=== PATIENT | female | born 1950 | race African-American/Black ===

== ENCOUNTER 2017-01-06 14:28 | Inpatient (IN) | payer MEDICARE, OTHER ==
[~2017-01-06] VITALS: Ht 162.6 cm; Wt 88.5 kg
--- NOTE | 2017-01-06 15:13 | EKG ---
[address] [address] Test Date: 2017-01-06 Test Time: 14:48:03 Pat Name: СВЕТЛАНА SIMON Department: Room: Gender: F Lineman: : 1950 Requested By: CHARO VAUGHN Order Number: [id number] Reading MD: Measurements Intervals [place] Rate: 80 P: 90 DC: 278 QRS: -82 QRSD: 156 T: 77 QT: 428 QTc: 498 Interpretive Statements SINUS RHYTHM PROLONGED DC INTERVAL ABNORMAL LEFT AXIS DEVIATION NON SPECIFIC INTRAVENTRICULAR BLOCK RVH WITH REPOLARIZATION ABNORMALITY QRS(T) CONTOUR ABNORMALITY CONSISTENT WITH ANTERIOR INFARCT POSSIBLY RECENT CONSISTENT WITH INFEROLATERAL INFARCT POSSIBLY RECENT RI6.01 Unconfirmed report No previous ECG available for comparison
[2017-01-06 15:19] LABS: BASO # 0.1 x10^3/uL (0.0-0.2); BASO % 1 % (0-3); EOS # 0.2 x10^3/uL (0.0-0.7); EOS % 2 % (0-3); HEMATOCRIT 44.3 % (36.0-47.0); HEMOGLOBIN 14.4 g/dL (12.0-15.5); LYMPH # 2.4 x10^3/uL (1.0-4.8); LYMPH % 29 % (24-48); MEAN CORPUSCULAR HEMOGLOBIN 31 pg (25-35); MEAN CORPUSCULAR HGB CONC 32 g/dL (31-37); MEAN CORPUSCULAR VOLUME 95 fL (79-100); MONO # 0.5 x10^3/uL (0.0-1.1); MONO % 6 % (0-9); NEUT # 5.1 x10^3uL (1.8-7.7); NEUT % 62 % (31-73); PLATELET COUNT 268 x10^3/uL (140-400); RED BLOOD COUNT 4.68 x10^6/uL (3.50-5.40); RED CELL DISTRIBUTION WIDTH 16.3 % (11.5-14.5); WHITE BLOOD COUNT 8.3 x10^3/uL (4.0-11.0)
[2017-01-06 15:30] LABS: ALBUMIN 3.4 g/dL (3.4-5.0); CALCIUM 8.9 mg/dL (8.5-10.1); CREATININE 1.6 mg/dL (0.6-1.0); GFR 38.9; MAGNESIUM 1.9 mg/dL (1.8-2.4); TOTAL BILIRUBIN 0.3 mg/dL (0.2-1.0); TOTAL PROTEIN 6.9 g/dL (6.4-8.2)
--- NOTE | 2017-01-06 15:55 | PHYS DOC ---
General Chief Complaint: MANIC BEHAVIOR Stated Complaint: PSYCH EVALUATION Time Seen by MD: 15:13 Source: patient, family Exam Limitations: clinical condition Problems: History of Present Illness Initial Comments Pt is 66/F to ED for medical clearance and [facility] admission. Pt is brought in by her daughter with whom she lives, stating that pt has 2 weeks worsening confusion, emotional lability, forgetfulness, and agitation. She follows with Dr Clay. Patient is alert and aware of her condition, she says she knows that she talks out loud and answers herself. She is aware that she's been irritable and she repeats herself. She becomes intermittently tearful while talking and initially had no complaints however shortly after arrival began requesting oxycodone for her foot pain attributed to history of gout. She was on hospice for COPD/CHF until today, it was discontinued so pt could receive inpatient SBH treatment and medication titration. Daughter reports that pt respiratory status slightly worsened today, requiring 3L O2 NC (uses 2L as baseline at all times). Pt denies chest pain or new breathing difficulty. Her ED vital signs are stable on 3 L of O2 per nasal cannula. Timing/Duration: getting worse (2 weeks) Severity: severe (L7, eyes: Unremarkable. Throughout some status is chest) Modifying Factors: improves with other Associated Symptoms: other Allergies: Coded Allergies: Penicillins (Verified Allergy, Unknown, 01/06/17) Past Medical History Medical History: other (breast cancer, COPD, CHF, atrial fibrillation, gout, diabetes, tremor, O2 dependent) Surgical History: pacemaker (bilateral mastectomy) Social History Smoker: cigarettes Alcohol: none Drugs: none Review of Systems Constitutional: denies chills, denies fever EENTM: denies eye pain, denies ear pain, denies nose pain, denies throat pain Respiratory: see HPI Cardiovascular: denies chest pain, denies palpitations, denies syncope Gastrointestinal: denies abdominal pain, denies diarrhea, denies nausea, denies vomiting Genitourinary: denies dysuria, denies frequency, denies hematuria Musculoskeletal: see HPI Psychiatric/Neurological: see HPI, denies headache, denies paresthesia, tremors Physical Exam General Appearance: no apparent distress (disheveled) Eyes: bilateral eye normal inspection, bilateral eye PERRL, bilateral eye EOMI Ear, Nose, Throat: hearing grossly normal, normal ENT inspection Neck: non-tender, supple Respiratory: other (faint wheezes diffusely with good air movement mildly decreased at the bases) Cardiovascular: normal peripheral pulses, regular rate, rhythm Gastrointestinal: non tender, soft Extremities: no calf tenderness, other (feet are tender bilaterally) Neurologic/Psychiatric: alert, other (emotional lability, periods of lucidity intermingled with confusion, calm and cooperative) Skin: normal color, warm/dry Orders, Labs, Meds EKG: Paced rhythm 80 bpm PATIENT: СВЕТЛАНА SIMON ACCOUNT: [id number] : 1950 LOCATION: ER AGE: 66 SEX: F EXAM STATUS: REG ER ORD. PHYSICIAN: CHARO VAUGHN DO REASON: dyspnea PROCEDURE: CHEST AP ONLY Portable chest, 01/06/2017: History: Dyspnea No previous chest radiographs are available at this time for comparison purposes. A left-sided transvenous pacemaker is in place with 2 leads extending into the right heart. The heart is mildly enlarged. The pulmonary vascularity is within normal limits. No pulmonary infiltrates are seen. There is no evidence of pleural fluid. Surgical clips are projected over the left axillary region. IMPRESSION: 1. Cardiomegaly. 2. No acute abnormality is detected. DICTATED AND SIGNED BY: TORITO EDWARDS MD DATE: 01/06/171635 CC: CHRISTEL GARDNER; CHARO VAUGHN DO ~ Pertinent labs: BUN 15, creatinine 1.6, BNP 453 Patient received a DuoNeb in the emergency department with improved breath sounds and decreased wheeze bilaterally. Percocet by mouth 7.5 mg with adequate foot pain control. Patient is medically stable for [facility] admission Dr Clay is accepting physician. Departure Time of Disposition: 17:00 Disposition: ADMITTED INPATIENT Diagnosis: mental status change, bipolar Condition: STABLE CHARO VAUGHN DO Jan 06, 2017 15:55
[2017-01-06 15:59] LABS: BILIRUBIN,URINE NEG (NEG); CLARITY,URINE HAZY; COLOR,URINE YELLOW; GLUCOSE,URINE NEG (NEG); NITRITE,URINE NEG (NEG); UROBILINOGEN,URINE 0.2 mg/dL (0.2 mg/dL)
[2017-01-06 16:00] LABS: BACTERIA,URINE FEW /HPF (0-FEW); SQUAMOUS EPITHELIAL CELL,UR MANY /LPF
[2017-01-06] MEDS ORDERED: IPRATRPIUM/ALBUTEROL 0.5/2.5MG 3 ML NEBU. ONE (16:07)
[2017-01-06] MEDS ORDERED: oxyCODONE/APAP 7.5/325 1 TAB TABLET PO ONE (16:10)
[2017-01-06] MEDS ORDERED: IPRATRPIUM/ALBUTEROL 0.5/2.5MG 3 ML NEBU. NEB ONE (16:10)
--- NOTE | 2017-01-06 16:41 | RAD ---
Portable chest, 01/06/2017: History: Dyspnea No previous chest radiographs are available at this time for comparison purposes. A left-sided transvenous pacemaker is in place with 2 leads extending into the right heart. The heart is mildly enlarged. The pulmonary vascularity is within normal limits. No pulmonary infiltrates are seen. There is no evidence of pleural fluid. Surgical clips are projected over the left axillary region. IMPRESSION: 1. Cardiomegaly. 2. No acute abnormality is detected.
[2017-01-06] MEDS ORDERED: MAG HYDROX/AL HYDROX/SIMETH 30 ML ORAL.SUSP PO PRN (18:30)
[2017-01-06] MEDS ORDERED: METHYL SALICYLATE/MENTHOL TOPICAL OINTMENT 29GM TUBE. TP PRN (18:30)
[2017-01-06 18:31] VITALS: BP 106/75
--- NOTE | 2017-01-06 20:21 | PDOC ---
Exam Albert Demential Exam: Albert Note: Please also refer to the separate dictated note~for this date of service dictated separately.~Patient seen individually. Discussed the patient with Nursing staff reviewed the chart.~Reviewed interim history and current functioning. Reviewed vital signs,~Labs/ Radiology~and current medications noted below. Continue current treatment with the changes noted in the dictated addendum note Assessment: Vital Signs: Vital Signs Date Time Temp Pulse Resp B/P (MAP) Pulse Ox O2 Delivery O2 Flow Rate FiO2 01/06/17 18:31 97.7 84 18 106/75 (85) 94 Nasal Cannula 2.0 Labs: Laboratory Tests Test 01/06/17 15:03 01/06/17 15:20 01/06/17 19:42 White Blood Count 8.3 x10^3/uL (4.0-11.0) Red Blood Count 4.68 x10^6/uL (3.50-5.40) Hemoglobin 14.4 g/dL (12.0-15.5) Hematocrit 44.3 % (36.0-47.0) Mean Corpuscular Volume 95 fL (79-100) Mean Corpuscular Hemoglobin 31 pg (25-35) Mean Corpuscular Hemoglobin Concent 32 g/dL (31-37) Red Cell Distribution Width 16.3 % (11.5-14.5) H Platelet Count 268 x10^3/uL (140-400) Neutrophils (%) (Auto) 62 % (31-73) Lymphocytes (%) (Auto) 29 % (24-48) Monocytes (%) (Auto) 6 % (0-9) Eosinophils (%) (Auto) 2 % (0-3) Basophils (%) (Auto) 1 % (0-3) Neutrophils # (Auto) 5.1 x10^3uL (1.8-7.7) Lymphocytes # (Auto) 2.4 x10^3/uL (1.0-4.8) Monocytes # (Auto) 0.5 x10^3/uL (0.0-1.1) Eosinophils # (Auto) 0.2 x10^3/uL (0.0-0.7) Basophils # (Auto) 0.1 x10^3/uL (0.0-0.2) Sodium Level 142 mmol/L (136-145) Potassium Level 4.0 mmol/L (3.5-5.1) Chloride Level 104 mmol/L (98-107) Carbon Dioxide Level 28 mmol/L (21-32) Anion Gap 10 (6-14) Blood Urea Nitrogen 15 mg/dL (7-20) Creatinine 1.6 mg/dL (0.6-1.0) H Estimated GFR (Cockcroft-Gault) 38.9 BUN/Creatinine Ratio 9 (6-20) Glucose Level 164 mg/dL (70-99) H Calcium Level 8.9 mg/dL (8.5-10.1) Magnesium Level 1.9 mg/dL (1.8-2.4) Total Bilirubin 0.3 mg/dL (0.2-1.0) Aspartate Amino Transferase (AST) 12 U/L (15-37) L Alanine Aminotransferase (ALT) 17 U/L (14-59) Alkaline Phosphatase 77 U/L (46-116) Troponin I Quantitative < 0.017 ng/mL (0-0.055) TU-Kmb-F-Type Natriuretic Peptide 453 pg/mL (0-124) H Total Protein 6.9 g/dL (6.4-8.2) Albumin 3.4 g/dL (3.4-5.0) Albumin/Globulin Ratio 1.0 (1.0-1.7) Urine Collection Type Unknown Urine Color Yellow Urine Clarity Hazy Urine pH 5.5 Urine Specific [place] 1.015 Urine Protein Trace (NEG-TRACE) Urine Glucose (UA) Neg mg/dL (NEG) Urine Ketones (Stick) Neg mg/dL (NEG) Urine Blood Neg (NEG) Urine Nitrite Neg (NEG) Urine Bilirubin Neg (NEG) Urine Urobilinogen Dipstick 0.2 mg/dL (0.2 mg/dL) Urine Leukocyte Esterase Neg (NEG) Urine RBC 1-2 /HPF (0-2) Urine WBC 1-4 /HPF (0-4) Urine Squamous Epithelial Cells Many /LPF Urine Transitional Epithelial Cells Few /LPF Urine Bacteria Few /HPF (0-FEW) Urine Mucus Slight /LPF Glucose (Fingerstick) 186 mg/dL (70-99) H Current Medications: Meds: Current Medications Albuterol/ Ipratropium (Duoneb) 3 ml 1X ONCE NEB Last administered on t 16:09; Start 01/06/17 at 16:10; Stop 01/06/17 at 16:11; Status DC Oxycodone/ Acetaminophen (Percocet 7.5/ 325) 1 tab 1X ONCE PO Last administered on 01/06/17 16:07; Start 01/06/17 at 16:10; Stop 01/06/17 at 16:11 ; Status DC Albuterol/ Ipratropium (Duoneb) 3 ml STK-MED ONCE .ROUTE ; Start 01/06/17 at 16: 07; Stop 01/06/17 at 16:08; Status DC Acetaminophen (Tylenol) 650 mg PRN Q6HRS PRN PO PAIN / TEMP; Start 01/06/17 at 16:30 Multi-Ingredient Ointment (Analgesic [place]) 1 luis miguel PRN QID PRN TP MUSCLE PAIN; Start 01/06/17 at 18:30 Al Hydroxide/Mg Hydroxide (Mylanta Plus Xs) 15 ml PRN AFTMEALHC PRN PO DYSPEPSIA; Start 01/06/17 at 18:30 Magnesium Hydroxide (Milk Of Magnesia) 2,400 mg PRN QHS PRN PO CONSTIPATION; Start 01/06/17 at 18:30 Nicotine (Nicoderm Cq 21mg) 1 patch DAILY TD ; Start 01/07/17 at 09:00 Diagnosis: Problems: (1) Mental status change (2) Bipolar 1 disorder, mixed TRUDI LACEY MD Jan 06, 2017 20:21
[2017-01-06] MEDS ORDERED: METO2.5T PO (22:16)
[2017-01-06] MEDS ORDERED: TRAZ300T2 (22:16)
[2017-01-06] MEDS ORDERED: TORS20TA2 PO (22:16)
[2017-01-06] MEDS ORDERED: NITR0.4T SL (22:16)
[2017-01-06] MEDS ORDERED: OMEP40CA5 PO (22:16)
[2017-01-06] MEDS ORDERED: VENL75CA6 PO (22:16)
[2017-01-06] MEDS ORDERED: ONDA8TAB12 PO (22:16)
[2017-01-06] MEDS ORDERED: SPIR25TA3 PO (22:16)
[2017-01-06] MEDS ORDERED: SPIR50TA2 PO (22:16)
[2017-01-06] MEDS ORDERED: ALLO300T PO (22:16)
[2017-01-06] MEDS ORDERED: ASPI-630 PO (22:16)
[2017-01-06] MEDS ORDERED: GLIM4TAB2 PO (22:16)
[2017-01-06] MEDS ORDERED: GABA600T2 PO (22:16)
[2017-01-06] MEDS ORDERED: POTA20TA4 PO (22:16)
[2017-01-06] MEDS ORDERED: INDO50CA PO (22:16)
[2017-01-06] MEDS ORDERED: SENN1TAB9 PO (22:16)
[2017-01-06] MEDS ORDERED: SITA100T PO (22:16)
[2017-01-06] MEDS ORDERED: TRAZ-90 PO (22:16)
--- NOTE | 2017-01-06 23:28 | HP ---
ADMIT DATE: 01/06/2017 PSYCHIATRIC ADMISSION HISTORY/EVALUATION IDENTIFYING DATA: The patient is a 66-year-old -Kitt[place] female referred as an emergency after that the patient's daughter called me through the answering service on account of the patient's worsening confusion, racing thoughts, , repeating herself, more emotional, forgetful, agitated. Her outpatient psychologist, Dr. Amanda Yu had asked the daughter to consider having the patient hospitalized from a psychiatric standpoint to stabilize her solomon. It was then that her daughter called me as I followed the patient as outpatient for some time though she is not being back at my office for about 6 months. Daughter was unable to manage the patient at home. Her confusion was worsening. She was increasingly manic, forgetful and referred for inpatient psychiatric stabilization. CHIEF COMPLAINT: "I am more forgetful. I am thinking too fast. I can't stop . I had been on hospice for heart failure. I cannot go on like this." HISTORY OF PRESENT ILLNESS: The patient has a long history of bipolar disorder. I have followed her in the office for about 20 years and she returns approximately every 6 months and she is followed outpatient by Dr. Amanda Yu, her psychologist every 1 or 2 weeks. For the most part, she has been stable on mood stabilizers and atypical antipsychotics together with antidepressants. Over the past 2 weeks; however, this is all changed. She is getting more confused, forgetful, with sleep and appetite changes have been evident. She has been more irritable, emotional, psychotic. Haldol was administered outpatient, seemed to exacerbate her symptoms. No active suicidal or homicidal ideation. PAST PSYCHIATRIC HISTORY: As above. PAST MEDICAL HISTORY: COPD, congestive heart failure, diabetes mellitus, gout, tremors. ALLERGIES: PENICILLIN. CURRENT PSYCHOTROPICS: Electronic medication administration records were reviewed. The patient is currently on no psychotropics as hospice had discontinued this regimen. CODE STATUS: DNR. FAMILY HISTORY: Noncontributory. SOCIAL HISTORY: The patient lives at home with her daughter and 3 grandchildren. No alcohol or drug abuse, physical, sexual or elder abuse history is noted. She is not known to be a perpetrator. MENTAL STATUS EXAMINATION: The patient was seen individually evening of 01/06/2017 shortly after she arrived in the unit. She is oriented to herself and situation and seemed to recognize me quite clearly, was able to give reasonable past history, but short-term memory was impaired. She is sad, depressed, tearful, anxious, labile in her mood. She is also paranoid. No active suicidal or homicidal ideation. Attention span short, language function intact. Intellect average. Insight good. Judgment intact to standard questioning. REVIEW OF SYSTEMS: Ambulation impaired. No CV, , pulmonary, eye, ENT system symptoms on review. This note covers the elements not covered in my initial note. LABORATORY DATA: Reviewed. IMPRESSION: Bipolar 1 disorder, mixed versus depressed with psychotic features; cognitive disorder, unspecified versus mild cognitive impairment; anxiety disorder, unspecified; impulse control disorder, unspecified. Rest as above. PLAN: Admit to the geropsychiatry unit at [facility]. I will see the patient daily individually from a psychiatric standpoint. Request medical followup with Dr. German/Dr. Malcolm. Do not start the patient on any psychotropics for now. Observe baseline. We will add Zyprexa p.r.n. Consider restarting her on Depakote as a mood stabilizer, Seroquel as an atypical antipsychotic after the baseline assessment. We will also have a CT head done to rule out any intracranial lesion accounting for the change in mental status. TRUDI LACEY MD DR: CRYS/marietta JOB#: [id number] / [id number]
[2017-01-07] MEDS ORDERED: NITROGLYCERIN SUBLINGUAL 0.4 MG BOTTLE OF 25. SL PRN (03:00)
[2017-01-07] MEDS ORDERED: ONDANSETRON ODT 4 MG TAB.RAPDIS PO PRN (03:00)
[2017-01-07] MEDS ORDERED: SENNOSIDES/DOCUSATE 8.6/50MG TABLET. PO PRN (03:00)
--- NOTE | 2017-01-07 04:09 | ACF ---
Admission Criteria Forms MENTAL STATUS CHANGE Clinical Indications for Inpatient Care (Place 'X' for any and all applicable criteria): Ongoing inpatient care may be needed for 1 or more of the following(1)(2)(3)(5)( 6): [ ]I. Suspected serious etiology (eg, medical disorder, GLOBAL SAL[employer] event) of altered mental status [ ]II. Danger to self or others not manageable at lower level of care [ ]III. Grave disability (eg, inability to perform self care necessary at lower level of care) [X]IV. Agitation or inappropriate behavior interfering with care for primary condition (eg, attempting to discontinue lines or drains prematurely, unable to cooperate with respiratory care) [ ]V. Delirium [A] [D][E] as described by 1 or more of the following(26): [ ]a) Delirium due to alcohol or sedative [F] withdrawal [ ]b) Delirium of uncertain etiology that has not responded to appropriate empiric treatment [ ]c) Delirium that prevents performance of a life-sustaining function (eg, feeding or hydrating oneself) [ ]. General contraindications and/or Inappropriate clinical situations for Observational Care in patients with Mental Status Change, when ANY ONE of the following is required: [ ]a) Prediction of prolongation of LOS based on ANY ONE of the following may be considered as a contraindication for observational care 2, 3, 4, 5, 6, 7, 8, 9, 10, 11 [ ]i) Age > 65 yrs. [ ]ii) Patient arriving by ambulance [ ]iii) Patient with high acuity [ ]iv) Patient requiring vital sign monitoring [ ]v) Patient on IV medication [ ]b) Systolic blood pressures greater than or equal to 180mmHg 3, 12 [ ]c) Patient with altered mental status including delirium and other alteration of consciousness, (3) [ ]d) Patient whose discharge disposition will be to a halfway home or rehabilitation home should not be managed in Emergency Department Observation Unit. CMS rule requires 3 days hospital stay before such placement.3,13 [ ]e) Patient with failure to thrive due to broad array of etiologies 3,16,17 [ ]f) Inability to ambulate 3,14 Extended stay beyond goal length of stay for the primary condition may be needed until ALL of the following are present(3)(5): [ ]a) Underlying medical etiology of mental status change is absent, or has been established and adequately treated [ ]b) Danger to self or others is absent or manageable at lower level of care. [ ]c) Behavior crisis management, including physical or chemical restraints, is not required or available at lower level of car [ ]d) Substance or alcohol withdrawal is absent or manageable at lower level of care. [ ]e) Behavioral symptoms (eg, agitation, somnolence, inappropriate behavior) are absent, or are manageable at lower level of care. The original [facility] [employer] content created by [employer] has been revised. The portions of the content which have been revised are identified through the use of italic text or in bold, and [facility] has neither reviewed nor approved the modified material. All other unmodified content is copyright [employer]. Please see references footnoted in the original [employer] edition 2016 Admission Criteria Met?: Yes GAYLA MOODY Jan 07, 2017 04:09
[2017-01-07 05:31] VITALS: BP 108/73
[2017-01-07] MEDS: POTASSIUM CHLORIDE 20 MEQ TABLET.ER. PO SCH (08:46)
[2017-01-07] MEDS: GLIMEPIRIDE 4 MG TABLET PO SCH (08:46)
[2017-01-07] MEDS: LINAGLIPTIN 5 MG TABLET PO SCH (08:48)
[2017-01-07] MEDS: ALLOPURINOL 300 MG TABLET. PO SCH (08:48)
[2017-01-07] MEDS: ASPIRIN 81 MG TAB.CHEW PO SCH (08:48)
[2017-01-07] MEDS: VENLAFAXINE 75 MG TABLET. PO SCH ×3 (08:48→19:47)
[2017-01-07] MEDS: GABAPENTIN 300 MG CAPSULE. PO SCH ×3 (08:48→19:47)
[2017-01-07] MEDS: ACETAMINOPHEN 325 MG TABLET PO PRN (08:48)
[2017-01-07] MEDS: metOLazone 2.5 MG TABLET PO SCH (08:49)
[2017-01-07] MEDS: TORSEMIDE 20 MG TABLET. PO SCH ×2 (08:49→11:30)
[2017-01-07] MEDS: NICOTINE 21MG PATCH. TD SCH (08:50)
[2017-01-07] MEDS ORDERED: SPIRONOLACTONE 25 MG TABLET PO SCH ×2 (09:00)
[2017-01-07] MEDS: INDOMETHACIN 25 MG CAPSULE PO PRN ×2 (09:11→17:39)
--- NOTE | 2017-01-07 09:14 | RAD ---
CT head without contrast 01/07/2017 at 0847 hours Indication: Change in mental status Comparison: None available Technique: Multiple axial noncontrast CT images of the head were obtained from the skull base through the vertex. Findings: The ventricles, sulci and basal cisterns are within normal limits. Cleary-white matter differentiation is normal. There is no acute intracranial hemorrhage. There is no mass, mass effect or midline shift. Posterior fossa is within normal limits. Sellar and suprasellar cistern appear normal. Orbits are normal in appearance. Paranasal sinuses are well aerated. Mastoid air cells are well aerated. Scalp and calvaria are normal. Impression: There is no acute intracranial hemorrhage. PQRS Compliance Statement: One or more of the following individualized dose reduction techniques were utilized for this examination: 1. Automated exposure control 2. Adjustment of the mA and/or kV according to patient size 3. Use of iterative reconstruction technique
[2017-01-07 16:29] VITALS: BP 103/71
[2017-01-07 19:08] LABS: T3 TOTAL 109 ng/dL (71-180); THYROXINE 6.8 ug/dL (4.5-12.0)
[2017-01-07] MEDS: traZODone 100 MG TABLET. PO SCH (19:49)
--- NOTE | 2017-01-07 19:55 | PDOC ---
Exam Albert Demential Exam: Albert Note: Please also refer to the separate dictated note~for this date of service dictated separately.~Patient seen individually. Discussed the patient with Nursing staff reviewed the chart.~Reviewed interim history and current functioning. Reviewed vital signs,~Labs/ Radiology~and current medications noted below. Continue current treatment with the changes noted in the dictated addendum note Assessment: Vital Signs: Vital Signs Date Time Temp Pulse Resp B/P (MAP) Pulse Ox O2 Delivery O2 Flow Rate FiO2 01/07/17 16:29 97.7 84 20 103/71 (82) 95 Room Air 01/07/17 05:31 2.0 I&O Intake and Output 01/07/17 07:00 Intake Total 240 ml Balance 240 ml Intake Oral 240 ml Labs: Laboratory Tests Test 01/07/17 08:03 01/07/17 11:36 01/07/17 17:02 01/07/17 19:06 Glucose (Fingerstick) 113 mg/dL (70-99) H 126 mg/dL (70-99) H 171 mg/dL (70-99) H 158 mg/dL (70-99) H Current Medications: Meds: Current Medications Albuterol/ Ipratropium (Duoneb) 3 ml 1X ONCE NEB Last administered on 16:09; Start 01/06/17 at 16:10; Stop 01/06/17 at 16:11; Status DC Oxycodone/ Acetaminophen (Percocet 7.5/ 325) 1 tab 1X ONCE PO Last administered on 01/06/17 16:07; Start 01/06/17 at 16:10; Stop 01/06/17 at 16:11 ; Status DC Albuterol/ Ipratropium (Duoneb) 3 ml STK-MED ONCE .ROUTE ; Start 01/06/17 at 16: 07; Stop 01/06/17 at 16:08; Status DC Acetaminophen (Tylenol) 650 mg PRN Q6HRS PRN PO PAIN / TEMP Last administered on 01/07/17 08:48; Start 01/06/17 at 16:30 Multi-Ingredient Ointment (Analgesic [place]) 1 luis miguel PRN QID PRN TP MUSCLE PAIN; Start 01/06/17 at 18:30 Al Hydroxide/Mg Hydroxide (Mylanta Plus Xs) 15 ml PRN AFTMEALHC PRN PO DYSPEPSIA; Start 01/06/17 at 18:30 Magnesium Hydroxide (Milk Of Magnesia) 2,400 mg PRN QHS PRN PO CONSTIPATION; Start 01/06/17 at 18:30 Nicotine (Nicoderm Cq 21mg) 1 patch DAILY TD Last administered on 01/07/17 08: 50; Start 01/07/17 at 09:00 Allopurinol (Zyloprim) 300 mg DAILY PO Last administered on 01/07/17 08:48; Start 01/07/17 at 09:00 Aspirin (Children'S Aspirin) 81 mg DAILY PO Last administered on 01/07/17 08: 48; Start 01/07/17 at 09:00 Glimepiride (Amaryl) 4 mg DAILYAC PO Last administered on 01/07/17 08:46; Start 01/07/17 at 07:30 Metolazone (Zaroxolyn) 2.5 mg DAILY PO Last administered on 01/07/17 08:49; Start 01/07/17 at 09:00 Nitroglycerin (Nitrostat) 0.4 mg PRN Q5MIN PRN SL CHEST PAIN; Start 01/07/17 at 03:00 Potassium Chloride (Klor-Con) 20 meq DAILY PO Last administered on 01/07/17 08 :46; Start 01/07/17 at 09:00 Senna/Docusate Sodium (Senna Plus) 1 tab PRN BID PRN PO constipation; Start at 03:00 Spironolactone (Aldactone) 12.5 mg DAILY PO ; Start 01/07/17 at 09:00; Stop at 17:33; Status DC Torsemide (Demadex) 20 mg BIDACBL PO Last administered on 01/07/17 11:30; Start 01/07/17 at 07:30 Gabapentin (Neurontin) 600 mg TID PO Last administered on 01/07/17 19:47; Start 01/07/17 at 09:00 Indomethacin (Indocin) 50 mg PRN TID PRN PO INFLAMATION Last administered on 17:39; Start 01/07/17 at 03:00 Ondansetron HCl (Zofran Odt) 8 mg PRN Q8HRS PRN PO NAUSEA; Start 01/07/17 at 03 :00 Linagliptin (Tradjenta) 5 mg DAILY PO Last administered on 01/07/17 08:48; Start 01/07/17 at 09:00 Spironolactone (Aldactone) 50 mg DAILY PO ; Start 01/07/17 at 09:00; Stop at 17:33; Status DC Trazodone HCl (Desyrel) 200 mg HS PO Last administered on 01/07/17 19:49; Start 01/07/17 at 21:00 Venlafaxine HCl (Effexor) 75 mg TID PO Last administered on 01/07/17 19:47; Start 01/07/17 at 09:00 Spironolactone (Aldactone) 25 mg DAILY PO ; Start 01/08/17 at 09:00 Quetiapine Fumarate (SEROquel) 25 mg QHS PO Last administered on 01/07/17 19: 49; Start 01/07/17 at 21:00 Active Scripts Active Reported Trazodone Hcl 100 Mg Tablet 200 Mg PO HS Nitrostat (Nitroglycerin) 0.4 Mg Tab.subl 0.4 Mg SL PRN Q5MIN PRN Spironolactone 50 Mg Tablet 50 Mg PO DAILY Indomethacin 50 Mg Capsule 50 Mg PO TID PRN Januvia (Sitagliptin Phosphate) 100 Mg Tablet 100 Mg PO DAILY Senexon-S Tablet (Sennosides/Docusate Sodium) 1 Each Tablet 1 Each PO PRN BID PRN Zofran Odt (Ondansetron) 8 Mg Tab.rapdis 8 Mg PO PRN Q8HR PRN Aspirin 81 Mg Tab.chew 81 Mg PO DAILY Torsemide 20 Mg Tablet 20 Mg PO BIDACBL Klor-Con M20 (Potassium Chloride) 20 Meq Tab.er.prt 20 Meq PO DAILY Glimepiride 4 Mg Tablet 4 Mg PO DAILYAC Metolazone 2.5 Mg Tablet 2.5 Mg PO DAILY Gabapentin 600 Mg Tablet 600 Mg PO TID Spironolactone 25 Mg Tablet 12.5 Mg PO DAILY Allopurinol 300 Mg Tablet 300 Mg PO DAILY Venlafaxine Hcl Er (Venlafaxine Hcl) 75 Mg Cap.er.24h 3 Cap PO DAILY Diagnosis: Problems: (1) Mental status change (2) Bipolar 1 disorder, mixed (3) Bipolar 1 disorder, mixed, moderate (4) Anxiety disorder (5) Impulse control disorder TRUDI LACEY MD Jan 07, 2017 19:55
[2017-01-07] MEDS: MAGNESIUM HYDROXIDE 2,400 MG/30 ML ORAL.SUSP. PO PRN (20:05)
[2017-01-07] MEDS ORDERED: QUEtiapine 25 MG TABLET. PO SCH (21:00)
[2017-01-08] MEDS: ACETAMINOPHEN 325 MG TABLET PO PRN ×2 (03:13→12:03)
[2017-01-08 05:09] LABS: HEMOGLOBIN A1C 7.8 % (4.8-5.6)
[2017-01-08 06:28] VITALS: BP 145/73
[2017-01-08] MEDS: NICOTINE 21MG PATCH. TD SCH (07:47)
[2017-01-08] MEDS: GLIMEPIRIDE 4 MG TABLET PO SCH (07:48)
[2017-01-08] MEDS: ASPIRIN 81 MG TAB.CHEW PO SCH (07:49)
[2017-01-08] MEDS: metOLazone 2.5 MG TABLET PO SCH (07:49)
[2017-01-08] MEDS: VENLAFAXINE 75 MG TABLET. PO SCH ×3 (07:49→20:55)
[2017-01-08] MEDS: POTASSIUM CHLORIDE 20 MEQ TABLET.ER. PO SCH (07:49)
[2017-01-08] MEDS: GABAPENTIN 300 MG CAPSULE. PO SCH ×3 (07:49→20:53)
[2017-01-08] MEDS: LINAGLIPTIN 5 MG TABLET PO SCH (07:49)
[2017-01-08] MEDS: TORSEMIDE 20 MG TABLET. PO SCH ×2 (07:49→12:03)
[2017-01-08] MEDS: ALLOPURINOL 300 MG TABLET. PO SCH (07:49)
[2017-01-08] MEDS: SPIRONOLACTONE 25 MG TABLET PO SCH (07:50)
[2017-01-08] MEDS: INDOMETHACIN 25 MG CAPSULE PO PRN ×2 (07:52→13:17)
[2017-01-08 08:10] LABS: C REACTIVE PROTEIN 8.1 mg/L (0-3.3); CALCIUM 9.1 mg/dL (8.5-10.1); CREATININE 1.9 mg/dL (0.6-1.0); GFR 31.9; POTASSIUM 4.1 mmol/L (3.5-5.1); URIC ACID 3.1 mg/dL (2.6-6.0)
--- NOTE | 2017-01-08 15:40 | CONS ---
DATE OF CONSULTATION: 01/07/2017 REASON FOR CONSULTATION: Consult for medical management for the patient. HISTORY OF PRESENT ILLNESS: The patient is a 66-year-old -Tog[place] female patient who was referred as an emergency after her daughters called Dr. Clay through the answering service on account that the patient with worsening confusion, racing thoughts, repeating herself, more emotional, forgetful, and agitated. Her outpatient psychologist, Dr. Amanda Yu had asked her daughter to consider having the patient hospitalized from a psychiatric standpoint to stabilize her solomon and therefore, she was admitted to this unit for inpatient psychiatric stabilization. PAST PSYCHIATRIC HISTORY: Significant for bipolar disorder, has been followed by Dr. Clay for more than 20 years and followed every 6 months. She has been stable on mood stabilizers and atypical antipsychotics together with antidepressant; however, over the past 2 weeks, all this has changed. She is getting more confused, forgetful, sleep and appetite changes have been evident. She is more irritable, emotional, psychotic, but however, no active suicidal or homicidal ideation. PAST MEDICAL HISTORY: Significant for COPD, congestive heart failure, diabetes mellitus, gout and tremor. PAST SURGICAL HISTORY: Significant for tonsillectomy, cholecystectomy, appendectomy as well as mastectomy. ALLERGIES: She is allergic to PENICILLIN. MEDICATIONS: She is currently on following medications: Allopurinol 300 mg once a day, aspirin 81 mg once a day, gabapentin 600 mg 3 times a day, glimepiride 4 mg daily. She is also on indomethacin 50 mg 3 times a day, metolazone 2.5 mg once a day, nitroglycerin 0.4 mg sublingually every 5 minutes as needed, ondansetron 8 mg every 8 hours as needed, potassium chloride 20 mEq daily, Senna-S 1 tablet twice a day, sitagliptin or Januvia 100 mg once a day, spironolactone 12.5 mg once a day and spironolactone 50 mg p.o. daily, torsemide 20 mg b.i.d., trazodone 100 mg once a day, venlafaxine 75 mg, she takes 3 capsules p.o. daily. FAMILY HISTORY: Noncontributory. SOCIAL HISTORY: The patient lives at home with her daughter and three grandchildren. She does not drink alcohol, does not smoke or abuse drugs. REVIEW OF SYSTEMS: As per history of present illness. When I saw the patient, she did complain of pain in her right big toe, stated that she has a flare up of her gout, although she is already on indomethacin as well as allopurinol. PHYSICAL EXAMINATION: GENERAL: When I examined her, she was slightly pale, but no jaundice, cyanosis, or thyromegaly. No jugular venous distention. No limb edema. VITAL SIGNS: Her heart rate was 84, blood pressure 103/71, temperature was 97.7, respiratory rate 20, and oxygen saturation was 95%. HEAD, EYES, EARS, NOSE, and THROAT: She is normocephalic, atraumatic. NECK: Supple. HEART: Showed normal first and second heart sounds with no gallop, rub or murmur. CHEST: Clear to auscultation. No crepitation or rhonchi. ABDOMEN: Distended, soft, nontender. No guarding or rigidity. No organomegaly. Hernial orifices intact. Bowel sounds normal. NEUROLOGIC: She was awake, alert, responding appropriately. Cranial nerves intact. EXTREMITIES: She moves extremities without difficulty. She ambulates without assistance or assistive devices. LABORATORY DATA: Her lab work showed a serum sodium 142, potassium 4, chloride 104, bicarbonate 28, anion gap of 10, BUN 15, creatinine 1.6, estimated GFR was 39 mL per minute. Her glucose 164, calcium was 8.9, magnesium 1.9. Her serum iron was 35, TIBC was 317 and iron saturation was 11%. Her total bilirubin, AST, ALT, alkaline phosphatase were normal. Her troponin was less than 0.017. Total protein was 6.9, albumin 3.4. Her vitamin B12 was 495. A 25-hydroxy vitamin D was 36.5. Her beta natriuretic peptide was 453. Serum triglycerides were 201, total cholesterol 110, LDL was 42, VLDL was 14, and HDL cholesterol was 28 and the ratio was 3. Her white cell count was 8300, hemoglobin 14.4, hematocrit 44, MCV 95 and platelet count 268,000 with normal manual differential. Urinalysis was essentially unremarkable. The urine was negative for nitrite, leukocyte esterase. There were only 1-2 rbc's, 1-4 wbc's, and very few bacteria. Chest x-ray showed that she has mild cardiomegaly, no acute abnormalities detected. She has left-sided venous pacemaker in place with two leads, extending to the right heart. The heart is mildly enlarged. Pulmonary vascularity is within normal limits. No pulmonary infiltrates are seen. There is no evidence of pleural fluid. Surgical clips are projected over the left axillary region. CT scan of the head showed that the ventricles, sulci and basal cisterns are within normal limits. Cleary-white matter differentiation is normal. There is no acute intracranial hemorrhage. There is no mass, mass effect or midline shift. Posterior fossa is within normal limits. Sellar and suprasellar cistern appears normal. The orbits are normal in appearance. Paranasal sinuses are well aerated. Mastoid air cells are well aerated. calvarial are normal. IMPRESSION: In summary, this is a 66-year-old -T[place] male patient who was admitted for inpatient psychiatric stabilization on the account of increasing confusion that is worsening, increasingly manic, forgetful. From a medical point of view, she seemed to be stable. Her vital signs are all within normal range. She did complain of gout in her right big toe; however, there is no swelling, redness or even tenderness. She is already on allopurinol as well as indomethacin 50 mg 3 times a day. Her urinalysis is unremarkable. Her complete blood count was within normal range and her chemistry showed that she has mildly elevated creatinine at 1.6. I am not sure that indomethacin is the right choice for her. I will arrange for her to check her uric acid and also sedimentation rate and C-reactive protein and she is diabetic, she is not a good candidate for steroid treatment. Thank you, Dr. Clay for allowing me to participate in the care of this patient. SHWETA LEPE MD DR: GRIFFIN/marietta JOB#: [id number] / [id number]
[2017-01-08 16:32] VITALS: BP 103/72
[2017-01-08] MEDS: LORazepam 0.5 MG TABLET PO PRN (18:37)
--- NOTE | 2017-01-08 19:55 | PDOC ---
Exam Albert Demential Exam: Albert Note: Please also refer to the separate dictated note~for this date of service dictated separately.~Patient seen individually. Discussed the patient with Nursing staff reviewed the chart.~Reviewed interim history and current functioning. Reviewed vital signs,~Labs/ Radiology~and current medications noted below. Continue current treatment with the changes noted in the dictated addendum note Assessment: Vital Signs: Vital Signs Date Time Temp Pulse Resp B/P (MAP) Pulse Ox O2 Delivery O2 Flow Rate FiO2 01/08/17 16:32 97.4 85 18 103/72 (82) 100 2.0 01/07/17 16:29 Room Air I&O Intake and Output 01/08/17 07:00 Intake Total 1080 ml Balance 1080 ml Intake Oral 1080 ml Labs: Laboratory Tests Test 01/08/17 07:07 01/08/17 07:35 01/08/17 08:11 01/08/17 11:45 Erythrocyte Sedimentation Rate 14 (0-25) Sodium Level 143 mmol/L (136-145) Potassium Level 4.1 mmol/L (3.5-5.1) Chloride Level 105 mmol/L (98-107) Carbon Dioxide Level 31 mmol/L (21-32) Anion Gap 7 (6-14) Blood Urea Nitrogen 22 mg/dL (7-20) H Creatinine 1.9 mg/dL (0.6-1.0) H Estimated GFR (Cockcroft-Gault) 31.9 Glucose Level 75 mg/dL (70-99) Uric Acid 3.1 mg/dL (2.6-6.0) Calcium Level 9.1 mg/dL (8.5-10.1) C-Reactive Protein 8.1 mg/L (0-3.3) H Glucose (Fingerstick) 61 mg/dL (70-99) L 105 mg/dL (70-99) H 239 mg/dL (70-99) H Test 01/08/17 16:57 01/08/17 19:21 Glucose (Fingerstick) 110 mg/dL (70-99) H 192 mg/dL (70-99) H Current Medications: Meds: Current Medications Albuterol/ Ipratropium (Duoneb) 3 ml 1X ONCE NEB Last administered on t 16:09; Start 01/06/17 at 16:10; Stop 01/06/17 at 16:11; Status DC Oxycodone/ Acetaminophen (Percocet 7.5/ 325) 1 tab 1X ONCE PO Last administered on 01/06/17 16:07; Start 01/06/17 at 16:10; Stop 01/06/17 at 16:11 ; Status DC Albuterol/ Ipratropium (Duoneb) 3 ml STK-MED ONCE .ROUTE ; Start 01/06/17 at 16: 07; Stop 01/06/17 at 16:08; Status DC Acetaminophen (Tylenol) 650 mg PRN Q6HRS PRN PO PAIN / TEMP Last administered on 01/08/17 12:03; Start 01/06/17 at 16:30 Multi-Ingredient Ointment (Analgesic [place]) 1 luis miguel PRN QID PRN TP MUSCLE PAIN; Start 01/06/17 at 18:30 Al Hydroxide/Mg Hydroxide (Mylanta Plus Xs) 15 ml PRN AFTMEALHC PRN PO DYSPEPSIA; Start 01/06/17 at 18:30 Magnesium Hydroxide (Milk Of Magnesia) 2,400 mg PRN QHS PRN PO CONSTIPATION Last administered on 01/07/17 20:05; Start 01/06/17 at 18:30 Nicotine (Nicoderm Cq 21mg) 1 patch DAILY TD Last administered on 01/08/17 07: 47; Start 01/07/17 at 09:00 Allopurinol (Zyloprim) 300 mg DAILY PO Last administered on 01/08/17 07:49; Start 01/07/17 at 09:00 Aspirin (Children'S Aspirin) 81 mg DAILY PO Last administered on 01/08/17 07: 49; Start 01/07/17 at 09:00 Glimepiride (Amaryl) 4 mg DAILYAC PO Last administered on 01/08/17 07:48; Start 01/07/17 at 07:30 Metolazone (Zaroxolyn) 2.5 mg DAILY PO Last administered on 01/08/17 07:49; Start 01/07/17 at 09:00 Nitroglycerin (Nitrostat) 0.4 mg PRN Q5MIN PRN SL CHEST PAIN; Start 01/07/17 at 03:00 Potassium Chloride (Klor-Con) 20 meq DAILY PO Last administered on 01/08/17 07 :49; Start 01/07/17 at 09:00 Senna/Docusate Sodium (Senna Plus) 1 tab PRN BID PRN PO constipation; Start at 03:00 Spironolactone (Aldactone) 12.5 mg DAILY PO ; Start 01/07/17 at 09:00; Stop at 17:33; Status DC Torsemide (Demadex) 20 mg BIDACBL PO Last administered on 01/08/17 12:03; Start 01/07/17 at 07:30 Gabapentin (Neurontin) 600 mg TID PO Last administered on 01/08/17 13:17; Start 01/07/17 at 09:00 Indomethacin (Indocin) 50 mg PRN TID PRN PO INFLAMATION Last administered on 13:17; Start 01/07/17 at 03:00 Ondansetron HCl (Zofran Odt) 8 mg PRN Q8HRS PRN PO NAUSEA; Start 01/07/17 at 03 :00 Linagliptin (Tradjenta) 5 mg DAILY PO Last administered on 01/08/17 07:49; Start 01/07/17 at 09:00 Spironolactone (Aldactone) 50 mg DAILY PO ; Start 01/07/17 at 09:00; Stop at 17:33; Status DC Trazodone HCl (Desyrel) 200 mg HS PO Last administered on 01/07/17 19:49; Start 01/07/17 at 21:00 Venlafaxine HCl (Effexor) 75 mg TID PO Last administered on 01/08/17 13:17; Start 01/07/17 at 09:00 Spironolactone (Aldactone) 25 mg DAILY PO Last administered on 01/08/17 07:50 ; Start 01/08/17 at 09:00 Quetiapine Fumarate (SEROquel) 25 mg QHS PO Last administered on 01/07/17 19: 49; Start 01/07/17 at 21:00; Stop 01/08/17 at 18:23; Status DC Lorazepam (Ativan) 0.25 mg PRN Q2HR PRN PO ANXIETY / AGITATION Last administered on 8/16/17at 18:37; Start 01/08/17 at 18:30 Quetiapine Fumarate (SEROquel) 50 mg QHS PO ; Start 01/08/17 at 21:00 Active Scripts Active Reported Trazodone Hcl 100 Mg Tablet 200 Mg PO HS Nitrostat (Nitroglycerin) 0.4 Mg Tab.subl 0.4 Mg SL PRN Q5MIN PRN Spironolactone 50 Mg Tablet 50 Mg PO DAILY Indomethacin 50 Mg Capsule 50 Mg PO TID PRN Januvia (Sitagliptin Phosphate) 100 Mg Tablet 100 Mg PO DAILY Senexon-S Tablet (Sennosides/Docusate Sodium) 1 Each Tablet 1 Each PO PRN BID PRN Zofran Odt (Ondansetron) 8 Mg Tab.rapdis 8 Mg PO PRN Q8HR PRN Aspirin 81 Mg Tab.chew 81 Mg PO DAILY Torsemide 20 Mg Tablet 20 Mg PO BIDACBL Klor-Con M20 (Potassium Chloride) 20 Meq Tab.er.prt 20 Meq PO DAILY Glimepiride 4 Mg Tablet 4 Mg PO DAILYAC Metolazone 2.5 Mg Tablet 2.5 Mg PO DAILY Gabapentin 600 Mg Tablet 600 Mg PO TID Spironolactone 25 Mg Tablet 12.5 Mg PO DAILY Allopurinol 300 Mg Tablet 300 Mg PO DAILY Venlafaxine Hcl Er (Venlafaxine Hcl) 75 Mg Cap.er.24h 3 Cap PO DAILY Diagnosis: Problems: (1) Mental status change (2) Bipolar 1 disorder, mixed (3) Bipolar 1 disorder, mixed, moderate (4) Anxiety disorder (5) Mild cognitive disorder (6) Impulse control disorder TRUDI LACEY MD Jan 08, 2017 19:55
[2017-01-08] MEDS: traZODone 100 MG TABLET. PO SCH (20:53)
[2017-01-08] MEDS: QUEtiapine 25 MG TABLET. PO SCH (20:55)
[2017-01-08] MEDS: MAGNESIUM HYDROXIDE 2,400 MG/30 ML ORAL.SUSP. PO PRN (21:09)
[2017-01-09] MEDS: INDOMETHACIN 25 MG CAPSULE PO PRN (04:08)
[2017-01-09 05:53] VITALS: BP 98/67
[2017-01-09] MEDS: TORSEMIDE 20 MG TABLET. PO SCH ×2 (08:12→11:38)
[2017-01-09] MEDS: GLIMEPIRIDE 4 MG TABLET PO SCH (08:12)
[2017-01-09] MEDS: SPIRONOLACTONE 25 MG TABLET PO SCH (08:12)
[2017-01-09] MEDS: ALLOPURINOL 300 MG TABLET. PO SCH (08:17)
[2017-01-09] MEDS: LINAGLIPTIN 5 MG TABLET PO SCH (08:17)
[2017-01-09] MEDS: NICOTINE 21MG PATCH. TD SCH (08:17)
[2017-01-09] MEDS: ASPIRIN 81 MG TAB.CHEW PO SCH (08:17)
[2017-01-09] MEDS: POTASSIUM CHLORIDE 20 MEQ TABLET.ER. PO SCH (08:18)
[2017-01-09] MEDS: VENLAFAXINE 75 MG TABLET. PO SCH ×3 (08:18→19:46)
[2017-01-09] MEDS: GABAPENTIN 300 MG CAPSULE. PO SCH ×3 (08:18→19:46)
[2017-01-09] MEDS: metOLazone 2.5 MG TABLET PO SCH (08:18)
--- NOTE | 2017-01-09 14:30 | PN ---
DATE: 01/07/2017 PSYCHIATRIC PROGRESS NOTE This is a late entry for 01/07/2017, covers elements not covered in my initial of 01/07/2017. SUBJECTIVE: The patient was seen individually evening of 01/07/2017. She slept 6-3/4 hours previous night. Appetite 90%. CT head is clinically non-significant. O2 sats 95% on room air. She was previously on oxygen supplements while on hospice care at home. Nursing staff will monitor this. Reportedly, she has been extremely stressed since her twin sister 9 months ago, also secondary to congestive heart failure for which the patient is on hospice care herself. She is also being distressed with the gout pain, all of which have made her psychiatric symptoms worsen, addition to the fact that her psychotropics were discontinued as part of the hospice care. REVIEW OF SYSTEMS: Complains of being tired. Some shortness of breath. No CV, , pulmonary, eye, ENT system symptoms on review. MENTAL STATUS EXAM: Oriented to herself and situation. Speech is coherent. She is anxious, somewhat labile in her mood. Abstraction fair, computation impaired, language function intact, attention span short. Mood and affect remain somewhat anxious, labile, somewhat paranoid. No active suicidal or homicidal ideation. IMPRESSION: Bipolar 1 disorder, mixed with psychotic features; anxiety disorder, unspecified. PLAN: Continue Effexor 75 mg daily; trazodone 200 mg at bedtime; Seroquel will be started at 25 mg at bedtime, adjust further as clinically indicated. Seroquel is being used as a mood stabilizer and to augment the Effexor. MAN Enriqueta LACEY MD DR: CRYS/marietta JOB#: [id number] / [id number]
[2017-01-09 16:14] VITALS: BP 93/63
[2017-01-09] MEDS: traZODone 100 MG TABLET. PO SCH (19:46)
[2017-01-09] MEDS: QUEtiapine 25 MG TABLET. PO SCH (19:46)
--- NOTE | 2017-01-09 19:53 | PDOC ---
Exam Albert Demential Exam: Albert Note: Please also refer to the separate dictated note~for this date of service dictated separately.~Patient seen individually. Discussed the patient with Nursing staff reviewed the chart.~Reviewed interim history and current functioning. Reviewed vital signs,~Labs/ Radiology~and current medications noted below. Continue current treatment with the changes noted in the dictated addendum note Assessment: Vital Signs: Vital Signs Date Time Temp Pulse Resp B/P (MAP) Pulse Ox O2 Delivery O2 Flow Rate FiO2 01/09/17 16:14 96.9 81 20 93/63 (73) 94 01/09/17 05:53 2.0 01/07/17 16:29 Room Air I&O Intake and Output 01/09/17 07:00 Intake Total 1080 ml Balance 1080 ml Intake Oral 1080 ml # Voids 2 Labs: Laboratory Tests Test 01/09/17 04:04 01/09/17 07:17 01/09/17 12:03 01/09/17 16:33 Glucose (Fingerstick) 132 mg/dL (70-99) H 194 mg/dL (70-99) H 133 mg/dL (70-99) H 157 mg/dL (70-99) H Test 01/09/17 19:07 Glucose (Fingerstick) 173 mg/dL (70-99) H Current Medications: Meds: Current Medications Albuterol/ Ipratropium (Duoneb) 3 ml 1X ONCE NEB Last administered on 16:09; Start 01/06/17 at 16:10; Stop 01/06/17 at 16:11; Status DC Oxycodone/ Acetaminophen (Percocet 7.5/ 325) 1 tab 1X ONCE PO Last administered on 01/06/17 16:07; Start 01/06/17 at 16:10; Stop 01/06/17 at 16:11 ; Status DC Albuterol/ Ipratropium (Duoneb) 3 ml STK-MED ONCE .ROUTE ; Start 01/06/17 at 16: 07; Stop 01/06/17 at 16:08; Status DC Acetaminophen (Tylenol) 650 mg PRN Q6HRS PRN PO PAIN / TEMP Last administered on 01/08/17 12:03; Start 01/06/17 at 16:30 Multi-Ingredient Ointment (Analgesic [place]) 1 luis miguel PRN QID PRN TP MUSCLE PAIN; Start 01/06/17 at 18:30 Al Hydroxide/Mg Hydroxide (Mylanta Plus Xs) 15 ml PRN AFTMEALHC PRN PO DYSPEPSIA; Start 01/06/17 at 18:30 Magnesium Hydroxide (Milk Of Magnesia) 2,400 mg PRN QHS PRN PO CONSTIPATION Last administered on 01/08/17 21:09; Start 01/06/17 at 18:30 Nicotine (Nicoderm Cq 21mg) 1 patch DAILY TD Last administered on 01/09/17 08: 17; Start 01/07/17 at 09:00 Allopurinol (Zyloprim) 300 mg DAILY PO Last administered on 01/09/17 08:17; Start 01/07/17 at 09:00 Aspirin (Children'S Aspirin) 81 mg DAILY PO Last administered on 01/09/17 08: 17; Start 01/07/17 at 09:00 Glimepiride (Amaryl) 4 mg DAILYAC PO Last administered on 01/09/17 08:12; Start 01/07/17 at 07:30 Metolazone (Zaroxolyn) 2.5 mg DAILY PO Last administered on 01/09/17 08:18; Start 01/07/17 at 09:00 Nitroglycerin (Nitrostat) 0.4 mg PRN Q5MIN PRN SL CHEST PAIN; Start 01/07/17 at 03:00 Potassium Chloride (Klor-Con) 20 meq DAILY PO Last administered on 01/09/17 08 :18; Start 01/07/17 at 09:00 Senna/Docusate Sodium (Senna Plus) 1 tab PRN BID PRN PO constipation; Start at 03:00 Spironolactone (Aldactone) 12.5 mg DAILY PO ; Start 01/07/17 at 09:00; Stop at 17:33; Status DC Torsemide (Demadex) 20 mg BIDACBL PO Last administered on 01/09/17 11:38; Start 01/07/17 at 07:30 Gabapentin (Neurontin) 600 mg TID PO Last administered on 01/09/17 19:46; Start 01/07/17 at 09:00 Indomethacin (Indocin) 50 mg PRN TID PRN PO INFLAMATION Last administered on 04:08; Start 01/07/17 at 03:00 Ondansetron HCl (Zofran Odt) 8 mg PRN Q8HRS PRN PO NAUSEA; Start 01/07/17 at 03 :00 Linagliptin (Tradjenta) 5 mg DAILY PO Last administered on 01/09/17 08:17; Start 01/07/17 at 09:00 Spironolactone (Aldactone) 50 mg DAILY PO ; Start 01/07/17 at 09:00; Stop at 17:33; Status DC Trazodone HCl (Desyrel) 200 mg HS PO Last administered on 01/09/17 19:46; Start 01/07/17 at 21:00 Venlafaxine HCl (Effexor) 75 mg TID PO Last administered on 01/09/17 19:46; Start 01/07/17 at 09:00 Spironolactone (Aldactone) 25 mg DAILY PO Last administered on 01/09/17 08:12 ; Start 01/08/17 at 09:00 Quetiapine Fumarate (SEROquel) 25 mg QHS PO Last administered on 01/07/17 19: 49; Start 01/07/17 at 21:00; Stop 01/08/17 at 18:23; Status DC Lorazepam (Ativan) 0.25 mg PRN Q2HR PRN PO ANXIETY / AGITATION Last administered on 01/08/17 18:37; Start 01/08/17 at 18:30 Quetiapine Fumarate (SEROquel) 50 mg QHS PO Last administered on 01/09/17 19: 46; Start 01/08/17 at 21:00 Active Scripts Active Reported Trazodone Hcl 100 Mg Tablet 200 Mg PO HS Nitrostat (Nitroglycerin) 0.4 Mg Tab.subl 0.4 Mg SL PRN Q5MIN PRN Spironolactone 50 Mg Tablet 50 Mg PO DAILY Indomethacin 50 Mg Capsule 50 Mg PO TID PRN Januvia (Sitagliptin Phosphate) 100 Mg Tablet 100 Mg PO DAILY Senexon-S Tablet (Sennosides/Docusate Sodium) 1 Each Tablet 1 Each PO PRN BID PRN Zofran Odt (Ondansetron) 8 Mg Tab.rapdis 8 Mg PO PRN Q8HR PRN Aspirin 81 Mg Tab.chew 81 Mg PO DAILY Torsemide 20 Mg Tablet 20 Mg PO BIDACBL Klor-Con M20 (Potassium Chloride) 20 Meq Tab.er.prt 20 Meq PO DAILY Glimepiride 4 Mg Tablet 4 Mg PO DAILYAC Metolazone 2.5 Mg Tablet 2.5 Mg PO DAILY Gabapentin 600 Mg Tablet 600 Mg PO TID Spironolactone 25 Mg Tablet 12.5 Mg PO DAILY Allopurinol 300 Mg Tablet 300 Mg PO DAILY Venlafaxine Hcl Er (Venlafaxine Hcl) 75 Mg Cap.er.24h 3 Cap PO DAILY Diagnosis: Problems: (1) Mental status change (2) Bipolar 1 disorder, mixed (3) Bipolar 1 disorder, mixed, moderate (4) Anxiety disorder (5) Impulse control disorder TRUDI LACEY MD Jan 09, 2017 19:53
[2017-01-09] MEDS: MAGNESIUM HYDROXIDE 2,400 MG/30 ML ORAL.SUSP. PO PRN (20:58)
--- NOTE | 2017-01-09 23:48 | PN ---
DATE: 01/08/2017 PSYCHIATRIC PROGRESS NOTE This is a late entry of 01/08/2017 covers elements not covered in my initial note. SUBJECTIVE: I met with the patient evening of 01/08/2017. The patient has slept reasonably well previous evening had a better day per nursing report, complains of gout symptoms, attended group therapy. REVIEW OF SYSTEMS: Ambulation impaired. No CV, , pulmonary, eye system symptoms on review. Complains of shortness of breath, otherwise O2 sats are unremarkable. Anxiety seems to make her feel short of breath per nursing report. MENTAL STATUS EXAM: Reasonably oriented. Speech coherent, abstraction fair, computation somewhat impaired. Memory is impaired. No active suicidal or homicidal ideation. She is quite anxious. LABORATORY DATA: Reviewed. IMPRESSION: Bipolar 1 disorder, mixed with psychotic features, in partial remission; cognitive disorder, unspecified versus mild cognitive impairment. Rest unchanged. PLAN: Reviewed drug interactions risk, benefit ratio favors adding Ativan 0.25 mg q.2 hours p.r.n. anxiety maximum 1 mg in 24 hours, increasing bedtime Seroquel to 50 mg p.o. at bedtime for her bipolar disorder. No further change indicated at this time. TRUDI LACEY MD DR: CRYS/marietta JOB#: [id number] / [id number]
[2017-01-10] MEDS: INDOMETHACIN 25 MG CAPSULE PO PRN (01:28)
[2017-01-10 06:11] VITALS: BP 98/70
[2017-01-10] MEDS: SPIRONOLACTONE 25 MG TABLET PO SCH (07:53)
[2017-01-10] MEDS: GLIMEPIRIDE 4 MG TABLET PO SCH (07:53)
[2017-01-10] MEDS: LINAGLIPTIN 5 MG TABLET PO SCH (07:53)
[2017-01-10] MEDS: ASPIRIN 81 MG TAB.CHEW PO SCH (07:53)
[2017-01-10] MEDS: POTASSIUM CHLORIDE 20 MEQ TABLET.ER. PO SCH (07:54)
[2017-01-10] MEDS: NICOTINE 21MG PATCH. TD SCH (07:54)
[2017-01-10] MEDS: VENLAFAXINE 75 MG TABLET. PO SCH ×3 (07:54→19:45)
[2017-01-10] MEDS: ALLOPURINOL 300 MG TABLET. PO SCH (07:54)
[2017-01-10] MEDS: GABAPENTIN 300 MG CAPSULE. PO SCH ×3 (07:54→19:45)
[2017-01-10] MEDS: metOLazone 2.5 MG TABLET PO SCH (07:57)
[2017-01-10] MEDS: TORSEMIDE 20 MG TABLET. PO SCH ×2 (07:57→11:30)
[2017-01-10 16:40] VITALS: BP 122/69
[2017-01-10] MEDS: LORazepam 0.5 MG TABLET PO PRN (17:08)
[2017-01-10] MEDS: traZODone 100 MG TABLET. PO SCH (19:45)
[2017-01-10] MEDS: QUEtiapine 25 MG TABLET. PO SCH (19:45)
--- NOTE | 2017-01-10 19:57 | PDOC ---
Exam Albert Demential Exam: Albert Note: Please also refer to the separate dictated note~for this date of service dictated separately.~Patient seen individually. Discussed the patient with Nursing staff reviewed the chart.~Reviewed interim history and current functioning. Reviewed vital signs,~Labs/ Radiology~and current medications noted below. Continue current treatment with the changes noted in the dictated addendum note Assessment: Vital Signs: Vital Signs Date Time Temp Pulse Resp B/P (MAP) Pulse Ox O2 Delivery O2 Flow Rate FiO2 01/10/17 16:40 98.5 87 20 122/69 (86) 98 01/09/17 05:53 2.0 01/07/17 16:29 Room Air I&O Intake and Output 01/10/17 07:00 Intake Total 1230 ml Balance 1230 ml Intake Oral 1230 ml # Voids 1 Labs: Laboratory Tests Test 01/10/17 07:29 01/10/17 11:32 01/10/17 17:06 01/10/17 18:59 Glucose (Fingerstick) 104 mg/dL (70-99) H 139 mg/dL (70-99) H 105 mg/dL (70-99) H 178 mg/dL (70-99) H Current Medications: Meds: Current Medications Albuterol/ Ipratropium (Duoneb) 3 ml 1X ONCE NEB Last administered on 16:09; Start 01/06/17 at 16:10; Stop 01/06/17 at 16:11; Status DC Oxycodone/ Acetaminophen (Percocet 7.5/ 325) 1 tab 1X ONCE PO Last administered on 01/06/17 16:07; Start 01/06/17 at 16:10; Stop 01/06/17 at 16:11 ; Status DC Albuterol/ Ipratropium (Duoneb) 3 ml STK-MED ONCE .ROUTE ; Start 01/06/17 at 16: 07; Stop 01/06/17 at 16:08; Status DC Acetaminophen (Tylenol) 650 mg PRN Q6HRS PRN PO PAIN / TEMP Last administered on 01/08/17 12:03; Start 01/06/17 at 16:30 Multi-Ingredient Ointment (Analgesic [place]) 1 luis miguel PRN QID PRN TP MUSCLE PAIN; Start 01/06/17 at 18:30 Al Hydroxide/Mg Hydroxide (Mylanta Plus Xs) 15 ml PRN AFTMEALHC PRN PO DYSPEPSIA; Start 01/06/17 at 18:30 Magnesium Hydroxide (Milk Of Magnesia) 2,400 mg PRN QHS PRN PO CONSTIPATION Last administered on 01/09/17 20:58; Start 01/06/17 at 18:30 Nicotine (Nicoderm Cq 21mg) 1 patch DAILY TD Last administered on 01/10/17 07: 54; Start 01/07/17 at 09:00 Allopurinol (Zyloprim) 300 mg DAILY PO Last administered on 01/10/17 07:54; Start 01/07/17 at 09:00 Aspirin (Children'S Aspirin) 81 mg DAILY PO Last administered on 01/10/17 07: 53; Start 01/07/17 at 09:00 Glimepiride (Amaryl) 4 mg DAILYAC PO Last administered on 01/10/17 07:53; Start 01/07/17 at 07:30 Metolazone (Zaroxolyn) 2.5 mg DAILY PO Last administered on 01/10/17 07:57; Start 01/07/17 at 09:00 Nitroglycerin (Nitrostat) 0.4 mg PRN Q5MIN PRN SL CHEST PAIN; Start 01/07/17 at 03:00 Potassium Chloride (Klor-Con) 20 meq DAILY PO Last administered on 01/10/17 07 :54; Start 01/07/17 at 09:00 Senna/Docusate Sodium (Senna Plus) 1 tab PRN BID PRN PO constipation; Start at 03:00 Spironolactone (Aldactone) 12.5 mg DAILY PO ; Start 01/07/17 at 09:00; Stop at 17:33; Status DC Torsemide (Demadex) 20 mg BIDACBL PO Last administered on 01/10/17 11:30; Start 01/07/17 at 07:30 Gabapentin (Neurontin) 600 mg TID PO Last administered on 01/10/17 19:45; Start 01/07/17 at 09:00 Indomethacin (Indocin) 50 mg PRN TID PRN PO INFLAMATION Last administered on 01:28; Start 01/07/17 at 03:00 Ondansetron HCl (Zofran Odt) 8 mg PRN Q8HRS PRN PO NAUSEA; Start 01/07/17 at 03 :00 Linagliptin (Tradjenta) 5 mg DAILY PO Last administered on 01/10/17 07:53; Start 01/07/17 at 09:00 Spironolactone (Aldactone) 50 mg DAILY PO ; Start 01/07/17 at 09:00; Stop at 17:33; Status DC Trazodone HCl (Desyrel) 200 mg HS PO Last administered on 01/10/17 19:45; Start 01/07/17 at 21:00 Venlafaxine HCl (Effexor) 75 mg TID PO Last administered on 01/10/17 19:45; Start 01/07/17 at 09:00 Spironolactone (Aldactone) 25 mg DAILY PO Last administered on 01/10/17 07:53 ; Start 01/08/17 at 09:00 Quetiapine Fumarate (SEROquel) 25 mg QHS PO Last administered on 01/07/17 19: 49; Start 01/07/17 at 21:00; Stop 01/08/17 at 18:23; Status DC Lorazepam (Ativan) 0.25 mg PRN Q2HR PRN PO ANXIETY / AGITATION Last administered on 01/10/17 17:08; Start 01/08/17 at 18:30 Quetiapine Fumarate (SEROquel) 50 mg QHS PO Last administered on 01/10/17 19: 45; Start 01/08/17 at 21:00 Quetiapine Fumarate (SEROquel) 12.5 mg BID92 PO ; Start 01/11/17 at 09:00 Active Scripts Active Reported Trazodone Hcl 100 Mg Tablet 200 Mg PO HS Nitrostat (Nitroglycerin) 0.4 Mg Tab.subl 0.4 Mg SL PRN Q5MIN PRN Spironolactone 50 Mg Tablet 50 Mg PO DAILY Indomethacin 50 Mg Capsule 50 Mg PO TID PRN Januvia (Sitagliptin Phosphate) 100 Mg Tablet 100 Mg PO DAILY Sen[place]-S Tablet (Sennosides/Docusate Sodium) 1 Each Tablet 1 Each PO PRN BID PRN Zofran Odt (Ondansetron) 8 Mg Tab.rapdis 8 Mg PO PRN Q8HR PRN Aspirin 81 Mg Tab.chew 81 Mg PO DAILY Torsemide 20 Mg Tablet 20 Mg PO BIDACBL Klor-Con M20 (Potassium Chloride) 20 Meq Tab.er.prt 20 Meq PO DAILY Glimepiride 4 Mg Tablet 4 Mg PO DAILYAC Metolazone 2.5 Mg Tablet 2.5 Mg PO DAILY Gabapentin 600 Mg Tablet 600 Mg PO TID Spironolactone 25 Mg Tablet 12.5 Mg PO DAILY Allopurinol 300 Mg Tablet 300 Mg PO DAILY Venlafaxine Hcl Er (Venlafaxine Hcl) 75 Mg Cap.er.24h 3 Cap PO DAILY Diagnosis: Problems: (1) Mental status change (2) Bipolar 1 disorder, mixed (3) Bipolar 1 disorder, mixed, moderate (4) Anxiety disorder (5) Mild cognitive disorder (6) Impulse control disorder TRUDI LACEY MD Jan 10, 2017 19:57
--- NOTE | 2017-01-11 02:15 | PN ---
DATE: 01/09/2017 This is a late entry for 01/09/2017 and covers elements not covered in my initial note of 01/09/2017. SUBJECTIVE: The patient was staffed at a treatment team meeting with the entire team morning of 01/09/2017, seen individually evening of 01/09/2017. Reviewed her history. She does have short term memory deficits, did okay the previous evening, and on the morning of 01/09/2017, complaining of jerking of her right hand. No tremors noted. Towards the evening, she was crying at times, believing her great granddaughter has . I am not aware of this. REVIEW OF SYSTEMS: Shortness of breath. No CV, , pulmonary, eye system symptoms on review. MENTAL STATUS EXAM: Oriented to herself and situation. Speech coherent, abstraction fair, computation impaired, language function intact, attention span short. Mood and affect, lability is present, but better than before. LABORATORY DATA: Reviewed. IMPRESSION: Unchanged from initial note. PLAN: Continue current psychotropics, reviewed drug interactions, risk/benefit ratio favors no further change at this time. MAN Enriqueta LACEY MD DR: CRYS/marietta JOB#: [id number] / [id number]
[2017-01-11] MEDS: INDOMETHACIN 25 MG CAPSULE PO PRN (06:03)
[2017-01-11 06:11] VITALS: BP 119/88
[2017-01-11] MEDS: ASPIRIN 81 MG TAB.CHEW PO SCH (07:51)
[2017-01-11] MEDS: SPIRONOLACTONE 25 MG TABLET PO SCH (07:51)
[2017-01-11] MEDS: GABAPENTIN 300 MG CAPSULE. PO SCH ×3 (07:52→19:21)
[2017-01-11] MEDS: POTASSIUM CHLORIDE 20 MEQ TABLET.ER. PO SCH (07:52)
[2017-01-11] MEDS: VENLAFAXINE 75 MG TABLET. PO SCH ×3 (07:52→19:21)
[2017-01-11] MEDS: GLIMEPIRIDE 4 MG TABLET PO SCH (07:52)
[2017-01-11] MEDS: NICOTINE 21MG PATCH. TD SCH (07:53)
[2017-01-11] MEDS: ALLOPURINOL 300 MG TABLET. PO SCH (07:53)
[2017-01-11] MEDS: LINAGLIPTIN 5 MG TABLET PO SCH (07:53)
[2017-01-11] MEDS: TORSEMIDE 20 MG TABLET. PO SCH ×2 (07:55→11:30)
[2017-01-11] MEDS: metOLazone 2.5 MG TABLET PO SCH (07:56)
[2017-01-11] MEDS: QUEtiapine 25 MG TABLET. PO SCH ×3 (07:59→19:21)
[2017-01-11 13:17] VITALS: BP 90/59
[2017-01-11 15:50] VITALS: BP 107/69
[2017-01-11] MEDS: traZODone 100 MG TABLET. PO SCH (19:21)
--- NOTE | 2017-01-11 20:26 | PN ---
DATE: 01/10/2017 PSYCHIATRIC PROGRESS NOTE This is a late entry for 01/10/2017, covers elements not covered in my initial note. SUBJECTIVE: I met with the patient the evening of 01/10/2017. Discussed with Edel, social service staff. Edel has had a lengthy discussion with the patient about the patient's desire to be discharged prematurely. She is accepting of continuing hospitalization, but brought this up with me again the evening of 01/10/2017 and we addressed at great length. She is anxious, tearful at times. She had a good day till dinnertime, then tearful, labile, obsessive about discharge plans, poor insight about reasons for admission. REVIEW OF SYSTEMS: Ambulation impaired with walker. No CV, , pulmonary, eye system symptoms on review. MENTAL STATUS EXAM: Oriented reasonably to herself and situation. Speech coherent, abstraction fair, computation impaired, language function intact. Mood and affect remain somewhat withdrawn, depressed, labile at times. No active suicidal or homicidal ideation. Attention span short. Language function intact. Intellect average. Insight good. Judgment intact to standard questioning. IMPRESSION: Unchanged from initial note. PLAN: Continue current psychotropics. Start Seroquel 12.5 mg at 9 a.m. and 2 p.m., and continue 50 mg at bedtime and the rest of the psychotropics as before. MAN Enriqueta LACEY MD DR: CRYS/marietta JOB#: [id number] / [id number]
--- NOTE | 2017-01-11 23:25 | PDOC ---
Exam Albert Demential Exam: Albert Note: Please also refer to the separate dictated note~for this date of service dictated separately.~Patient seen individually. Discussed the patient with Nursing staff reviewed the chart.~Reviewed interim history and current functioning. Reviewed vital signs,~Labs/ Radiology~and current medications noted below. Continue current treatment with the changes noted in the dictated addendum note Assessment: Vital Signs: Vital Signs Date Time Temp Pulse Resp B/P (MAP) Pulse Ox O2 Delivery O2 Flow Rate FiO2 01/11/17 15:50 97.5 80 19 107/69 (82) 93 01/11/17 06:11 Nasal Cannula 2.0 I&O Intake and Output 01/11/17 07:00 Intake Total 1330 ml Balance 1330 ml Intake Oral 1330 ml # Voids 1 # Bowel Movements 5 Labs: Laboratory Tests Test 01/11/17 07:17 01/11/17 11:44 01/11/17 16:50 01/11/17 19:02 Glucose (Fingerstick) 74 mg/dL (70-99) 271 mg/dL (70-99) H 128 mg/dL (70-99) H 179 mg/dL (70-99) H Current Medications: Meds: Current Medications Albuterol/ Ipratropium (Duoneb) 3 ml 1X ONCE NEB Last administered on 16:09; Start 01/06/17 at 16:10; Stop 01/06/17 at 16:11; Status DC Oxycodone/ Acetaminophen (Percocet 7.5/ 325) 1 tab 1X ONCE PO Last administered on 01/06/17 16:07; Start 01/06/17 at 16:10; Stop 01/06/17 at 16:11 ; Status DC Albuterol/ Ipratropium (Duoneb) 3 ml STK-MED ONCE .ROUTE ; Start 01/06/17 at 16: 07; Stop 01/06/17 at 16:08; Status DC Acetaminophen (Tylenol) 650 mg PRN Q6HRS PRN PO PAIN / TEMP Last administered on 01/08/17 12:03; Start 01/06/17 at 16:30 Multi-Ingredient Ointment (Analgesic [place]) 1 luis miguel PRN QID PRN TP MUSCLE PAIN; Start 01/06/17 at 18:30 Al Hydroxide/Mg Hydroxide (Mylanta Plus Xs) 15 ml PRN AFTMEALHC PRN PO DYSPEPSIA; Start 01/06/17 at 18:30 Magnesium Hydroxide (Milk Of Magnesia) 2,400 mg PRN QHS PRN PO CONSTIPATION Last administered on 01/09/17 20:58; Start 01/06/17 at 18:30 Nicotine (Nicoderm Cq 21mg) 1 patch DAILY TD Last administered on 01/11/17 07: 53; Start 01/07/17 at 09:00 Allopurinol (Zyloprim) 300 mg DAILY PO Last administered on 01/11/17 07:53; Start 01/07/17 at 09:00 Aspirin (Children'S Aspirin) 81 mg DAILY PO Last administered on 01/11/17 07: 51; Start 01/07/17 at 09:00 Glimepiride (Amaryl) 4 mg DAILYAC PO Last administered on 01/11/17 07:52; Start 01/07/17 at 07:30 Metolazone (Zaroxolyn) 2.5 mg DAILY PO Last administered on 01/11/17 07:56; Start 01/07/17 at 09:00 Nitroglycerin (Nitrostat) 0.4 mg PRN Q5MIN PRN SL CHEST PAIN; Start 01/07/17 at 03:00 Potassium Chloride (Klor-Con) 20 meq DAILY PO Last administered on 01/11/17 07 :52; Start 01/07/17 at 09:00 Senna/Docusate Sodium (Senna Plus) 1 tab PRN BID PRN PO constipation; Start at 03:00 Spironolactone (Aldactone) 12.5 mg DAILY PO ; Start 01/07/17 at 09:00; Stop at 17:33; Status DC Torsemide (Demadex) 20 mg BIDACBL PO Last administered on 01/11/17 07:55; Start 01/07/17 at 07:30 Gabapentin (Neurontin) 600 mg TID PO Last administered on 01/11/17 19:21; Start 01/07/17 at 09:00 Indomethacin (Indocin) 50 mg PRN TID PRN PO INFLAMATION Last administered on 06:03; Start 01/07/17 at 03:00 Ondansetron HCl (Zofran Odt) 8 mg PRN Q8HRS PRN PO NAUSEA; Start 01/07/17 at 03 :00 Linagliptin (Tradjenta) 5 mg DAILY PO Last administered on 01/11/17 07:53; Start 01/07/17 at 09:00 Spironolactone (Aldactone) 50 mg DAILY PO ; Start 01/07/17 at 09:00; Stop at 17:33; Status DC Trazodone HCl (Desyrel) 200 mg HS PO Last administered on 01/11/17 19:21; Start 01/07/17 at 21:00 Venlafaxine HCl (Effexor) 75 mg TID PO Last administered on 01/11/17 19:21; Start 01/07/17 at 09:00 Spironolactone (Aldactone) 25 mg DAILY PO Last administered on 01/11/17 07:51 ; Start 01/08/17 at 09:00 Quetiapine Fumarate (SEROquel) 25 mg QHS PO Last administered on 01/07/17 19: 49; Start 01/07/17 at 21:00; Stop 01/08/17 at 18:23; Status DC Lorazepam (Ativan) 0.25 mg PRN Q2HR PRN PO ANXIETY / AGITATION Last administered on 01/10/17 17:08; Start 01/08/17 at 18:30 Quetiapine Fumarate (SEROquel) 50 mg QHS PO Last administered on 01/11/17 19: 21; Start 01/08/17 at 21:00 Quetiapine Fumarate (SEROquel) 12.5 mg BID92 PO Last administered on 01/11/17 15:16; Start 01/11/17 at 09:00 Active Scripts Active Reported Trazodone Hcl 100 Mg Tablet 200 Mg PO HS Nitrostat (Nitroglycerin) 0.4 Mg Tab.subl 0.4 Mg SL PRN Q5MIN PRN Spironolactone 50 Mg Tablet 50 Mg PO DAILY Indomethacin 50 Mg Capsule 50 Mg PO TID PRN Januvia (Sitagliptin Phosphate) 100 Mg Tablet 100 Mg PO DAILY Senexon-S Tablet (Sennosides/Docusate Sodium) 1 Each Tablet 1 Each PO PRN BID PRN Zofran Odt (Ondansetron) 8 Mg Tab.rapdis 8 Mg PO PRN Q8HR PRN Aspirin 81 Mg Tab.chew 81 Mg PO DAILY Torsemide 20 Mg Tablet 20 Mg PO BIDACBL Klor-Con M20 (Potassium Chloride) 20 Meq Tab.er.prt 20 Meq PO DAILY Glimepiride 4 Mg Tablet 4 Mg PO DAILYAC Metolazone 2.5 Mg Tablet 2.5 Mg PO DAILY Gabapentin 600 Mg Tablet 600 Mg PO TID Spironolactone 25 Mg Tablet 12.5 Mg PO DAILY Allopurinol 300 Mg Tablet 300 Mg PO DAILY Venlafaxine Hcl Er (Venlafaxine Hcl) 75 Mg Cap.er.24h 3 Cap PO DAILY Diagnosis: Problems: (1) Mental status change (2) Bipolar 1 disorder, mixed (3) Bipolar 1 disorder, mixed, moderate (4) Anxiety disorder (5) Mild cognitive disorder (6) Impulse control disorder TRUDI LACEY MD Jan 11, 2017 23:25
[2017-01-12 05:43] VITALS: BP 110/79
[2017-01-12] MEDS: LORazepam 0.5 MG TABLET PO PRN ×2 (06:51→15:49)
[2017-01-12] MEDS: TORSEMIDE 20 MG TABLET. PO SCH ×2 (08:43→11:10)
[2017-01-12] MEDS: GLIMEPIRIDE 4 MG TABLET PO SCH (08:43)
[2017-01-12] MEDS: POTASSIUM CHLORIDE 20 MEQ TABLET.ER. PO SCH (08:44)
[2017-01-12] MEDS: GABAPENTIN 300 MG CAPSULE. PO SCH ×3 (08:44→19:40)
[2017-01-12] MEDS: VENLAFAXINE 75 MG TABLET. PO SCH ×3 (08:44→19:41)
[2017-01-12] MEDS: SPIRONOLACTONE 25 MG TABLET PO SCH (08:44)
[2017-01-12] MEDS: ASPIRIN 81 MG TAB.CHEW PO SCH (08:44)
[2017-01-12] MEDS: metOLazone 2.5 MG TABLET PO SCH (08:45)
[2017-01-12] MEDS: ALLOPURINOL 300 MG TABLET. PO SCH (08:45)
[2017-01-12] MEDS: LINAGLIPTIN 5 MG TABLET PO SCH (08:45)
[2017-01-12] MEDS: NICOTINE 21MG PATCH. TD SCH (08:45)
[2017-01-12] MEDS: QUEtiapine 25 MG TABLET. PO SCH ×3 (08:45→19:41)
[2017-01-12 16:19] VITALS: BP 111/78
[2017-01-12] MEDS: traZODone 100 MG TABLET. PO SCH (19:40)
--- NOTE | 2017-01-12 19:52 | PDOC ---
Exam Albert Demential Exam: Albert Note: Please also refer to the separate dictated note~for this date of service dictated separately.~Patient seen individually. Discussed the patient with Nursing staff reviewed the chart.~Reviewed interim history and current functioning. Reviewed vital signs,~Labs/ Radiology~and current medications noted below. Continue current treatment with the changes noted in the dictated addendum note Assessment: Vital Signs: Vital Signs Date Time Temp Pulse Resp B/P (MAP) Pulse Ox O2 Delivery O2 Flow Rate FiO2 01/12/17 16:19 97.6 80 20 111/78 (89) 97 2.0 01/12/17 05:43 Room Air I&O Intake and Output 01/12/17 07:00 Intake Total 520 ml Balance 520 ml Intake Oral 520 ml Labs: Laboratory Tests Test 01/12/17 07:12 01/12/17 11:38 01/12/17 16:59 01/12/17 19:34 Glucose (Fingerstick) 122 mg/dL (70-99) H 191 mg/dL (70-99) H 123 mg/dL (70-99) H 197 mg/dL (70-99) H Current Medications: Meds: Current Medications Albuterol/ Ipratropium (Duoneb) 3 ml 1X ONCE NEB Last administered on 16:09; Start 01/06/17 at 16:10; Stop 01/06/17 at 16:11; Status DC Oxycodone/ Acetaminophen (Percocet 7.5/ 325) 1 tab 1X ONCE PO Last administered on 01/06/17 16:07; Start 01/06/17 at 16:10; Stop 01/06/17 at 16:11 ; Status DC Albuterol/ Ipratropium (Duoneb) 3 ml STK-MED ONCE .ROUTE ; Start 01/06/17 at 16: 07; Stop 01/06/17 at 16:08; Status DC Acetaminophen (Tylenol) 650 mg PRN Q6HRS PRN PO PAIN / TEMP Last administered on 01/08/17 12:03; Start 01/06/17 at 16:30 Multi-Ingredient Ointment (Analgesic [place]) 1 luis miguel PRN QID PRN TP MUSCLE PAIN; Start 01/06/17 at 18:30 Al Hydroxide/Mg Hydroxide (Mylanta Plus Xs) 15 ml PRN AFTMEALHC PRN PO DYSPEPSIA; Start 01/06/17 at 18:30 Magnesium Hydroxide (Milk Of Magnesia) 2,400 mg PRN QHS PRN PO CONSTIPATION Last administered on 01/09/17 20:58; Start 01/06/17 at 18:30 Nicotine (Nicoderm Cq 21mg) 1 patch DAILY TD Last administered on 01/12/17 08: 45; Start 01/07/17 at 09:00 Allopurinol (Zyloprim) 300 mg DAILY PO Last administered on 01/12/17 08:45; Start 01/07/17 at 09:00 Aspirin (Children'S Aspirin) 81 mg DAILY PO Last administered on 01/12/17 08: 44; Start 01/07/17 at 09:00 Glimepiride (Amaryl) 4 mg DAILYAC PO Last administered on 01/12/17 08:43; Start 01/07/17 at 07:30 Metolazone (Zaroxolyn) 2.5 mg DAILY PO Last administered on 01/12/17 08:45; Start 01/07/17 at 09:00 Nitroglycerin (Nitrostat) 0.4 mg PRN Q5MIN PRN SL CHEST PAIN; Start 01/07/17 at 03:00 Potassium Chloride (Klor-Con) 20 meq DAILY PO Last administered on 01/12/17 08 :44; Start 01/07/17 at 09:00 Senna/Docusate Sodium (Senna Plus) 1 tab PRN BID PRN PO constipation; Start at 03:00 Spironolactone (Aldactone) 12.5 mg DAILY PO ; Start 01/07/17 at 09:00; Stop at 17:33; Status DC Torsemide (Demadex) 20 mg BIDACBL PO Last administered on 01/12/17 11:10; Start 01/07/17 at 07:30 Gabapentin (Neurontin) 600 mg TID PO Last administered on 01/12/17 19:40; Start 01/07/17 at 09:00 Indomethacin (Indocin) 50 mg PRN TID PRN PO INFLAMATION Last administered on 06:03; Start 01/07/17 at 03:00 Ondansetron HCl (Zofran Odt) 8 mg PRN Q8HRS PRN PO NAUSEA; Start 01/07/17 at 03 :00 Linagliptin (Tradjenta) 5 mg DAILY PO Last administered on 01/12/17 08:45; Start 01/07/17 at 09:00 Spironolactone (Aldactone) 50 mg DAILY PO ; Start 01/07/17 at 09:00; Stop at 17:33; Status DC Trazodone HCl (Desyrel) 200 mg HS PO Last administered on 01/12/17 19:40; Start 01/07/17 at 21:00 Venlafaxine HCl (Effexor) 75 mg TID PO Last administered on 01/12/17 19:41; Start 01/07/17 at 09:00 Spironolactone (Aldactone) 25 mg DAILY PO Last administered on 01/12/17 08:44 ; Start 01/08/17 at 09:00 Quetiapine Fumarate (SEROquel) 25 mg QHS PO Last administered on 01/07/17 19: 49; Start 01/07/17 at 21:00; Stop 01/08/17 at 18:23; Status DC Lorazepam (Ativan) 0.25 mg PRN Q2HR PRN PO ANXIETY / AGITATION Last administered on 01/12/17 15:49; Start 01/08/17 at 18:30 Quetiapine Fumarate (SEROquel) 50 mg QHS PO Last administered on 01/12/17 19: 41; Start 01/08/17 at 21:00 Quetiapine Fumarate (SEROquel) 12.5 mg BID92 PO Last administered on 01/12/17 13:35; Start 01/11/17 at 09:00 Active Scripts Active Reported Trazodone Hcl 100 Mg Tablet 200 Mg PO HS Nitrostat (Nitroglycerin) 0.4 Mg Tab.subl 0.4 Mg SL PRN Q5MIN PRN Spironolactone 50 Mg Tablet 50 Mg PO DAILY Indomethacin 50 Mg Capsule 50 Mg PO TID PRN Januvia (Sitagliptin Phosphate) 100 Mg Tablet 100 Mg PO DAILY Senexon-S Tablet (Sennosides/Docusate Sodium) 1 Each Tablet 1 Each PO PRN BID PRN Zofran Odt (Ondansetron) 8 Mg Tab.rapdis 8 Mg PO PRN Q8HR PRN Aspirin 81 Mg Tab.chew 81 Mg PO DAILY Torsemide 20 Mg Tablet 20 Mg PO BIDACBL Klor-Con M20 (Potassium Chloride) 20 Meq Tab.er.prt 20 Meq PO DAILY Glimepiride 4 Mg Tablet 4 Mg PO DAILYAC Metolazone 2.5 Mg Tablet 2.5 Mg PO DAILY Gabapentin 600 Mg Tablet 600 Mg PO TID Spironolactone 25 Mg Tablet 12.5 Mg PO DAILY Allopurinol 300 Mg Tablet 300 Mg PO DAILY Venlafaxine Hcl Er (Venlafaxine Hcl) 75 Mg Cap.er.24h 3 Cap PO DAILY Diagnosis: Problems: (1) Mental status change (2) Bipolar 1 disorder, mixed (3) Bipolar 1 disorder, mixed, moderate (4) Anxiety disorder (5) Impulse control disorder TRUDI LACEY MD Jan 12, 2017 19:52
[2017-01-12] MEDS: INDOMETHACIN 25 MG CAPSULE PO PRN (20:43)
--- NOTE | 2017-01-13 00:17 | PN ---
DATE: 01/11/2017 This late entry 01/11/2017, covers elements not covered in my initial note of 01/11/2017. SUBJECTIVE: I met with the patient evening of 01/11/2017 in her room. Reportedly, the patient has had a good day. She still gets anxious, somewhat tearful at times, but less confused. No CV, , pulmonary, eye system symptoms on review, somewhat short of breath. MENTAL STATUS EXAM: Reasonably oriented. Speech is coherent, little more animated as I met with her. Abstraction fair, computation impaired, language function intact, attention span short. Mood and affect is improved. No active suicidal or homicidal ideation. LABORATORY DATA: Reviewed. IMPRESSION: Unchanged from initial note, CT head is negative. PLAN: Continue current psychotropics, Seroquel, trazodone and Effexor along with Ativan p.r.n. I reviewed drug interactions risk/benefit ratio favors no further change as of now. TRUDI LACEY MD DR: CRYS/marietta JOB#: [id number] / [id number]
[2017-01-13 06:08] VITALS: BP 97/62
[2017-01-13] MEDS: ASPIRIN 81 MG TAB.CHEW PO SCH (08:06)
[2017-01-13] MEDS: VENLAFAXINE 75 MG TABLET. PO SCH ×3 (08:06→19:31)
[2017-01-13] MEDS: QUEtiapine 25 MG TABLET. PO SCH ×3 (08:07→20:49)
[2017-01-13] MEDS: POTASSIUM CHLORIDE 20 MEQ TABLET.ER. PO SCH (08:07)
[2017-01-13] MEDS: TORSEMIDE 20 MG TABLET. PO SCH ×2 (08:07→11:36)
[2017-01-13] MEDS: ALLOPURINOL 300 MG TABLET. PO SCH (08:08)
[2017-01-13] MEDS: GLIMEPIRIDE 4 MG TABLET PO SCH (08:08)
[2017-01-13] MEDS: LINAGLIPTIN 5 MG TABLET PO SCH (08:08)
[2017-01-13] MEDS: SPIRONOLACTONE 25 MG TABLET PO SCH (08:08)
[2017-01-13] MEDS: GABAPENTIN 300 MG CAPSULE. PO SCH ×3 (08:08→19:31)
[2017-01-13] MEDS: NICOTINE 21MG PATCH. TD SCH (08:09)
[2017-01-13] MEDS: metOLazone 2.5 MG TABLET PO SCH (08:10)
[2017-01-13] MEDS: INDOMETHACIN 25 MG CAPSULE PO PRN (14:37)
[2017-01-13 16:05] VITALS: BP 106/74
[2017-01-13] MEDS: LORazepam 0.5 MG TABLET PO PRN (16:51)
[2017-01-13] MEDS: traZODone 100 MG TABLET. PO SCH (19:35)
--- NOTE | 2017-01-13 19:50 | PDOC ---
Exam Albert Demential Exam: Albert Note: Please also refer to the separate dictated note~for this date of service dictated separately.~Patient seen individually. Discussed the patient with Nursing staff reviewed the chart.~Reviewed interim history and current functioning. Reviewed vital signs,~Labs/ Radiology~and current medications noted below. Continue current treatment with the changes noted in the dictated addendum note Assessment: Vital Signs: Vital Signs Date Time Temp Pulse Resp B/P (MAP) Pulse Ox O2 Delivery O2 Flow Rate FiO2 01/13/17 16:05 97.5 84 18 106/74 (85) 97 2.0 01/12/17 05:43 Room Air I&O Intake and Output 01/13/17 06:59 Intake Total 1080 ml Balance 1080 ml Intake Oral 1080 ml Labs: Laboratory Tests Test 01/13/17 08:02 01/13/17 11:20 01/13/17 17:14 01/13/17 19:25 Glucose (Fingerstick) 204 mg/dL (70-99) H 149 mg/dL (70-99) H 217 mg/dL (70-99) H 255 mg/dL (70-99) H Current Medications: Meds: Current Medications Albuterol/ Ipratropium (Duoneb) 3 ml 1X ONCE NEB Last administered on 16:09; Start 01/06/17 at 16:10; Stop 01/06/17 at 16:11; Status DC Oxycodone/ Acetaminophen (Percocet 7.5/ 325) 1 tab 1X ONCE PO Last administered on 01/06/17 16:07; Start 01/06/17 at 16:10; Stop 01/06/17 at 16:11 ; Status DC Albuterol/ Ipratropium (Duoneb) 3 ml STK-MED ONCE .ROUTE ; Start 01/06/17 at 16: 07; Stop 01/06/17 at 16:08; Status DC Acetaminophen (Tylenol) 650 mg PRN Q6HRS PRN PO PAIN / TEMP Last administered on 01/08/17 12:03; Start 01/06/17 at 16:30 Multi-Ingredient Ointment (Analgesic [place]) 1 luis miguel PRN QID PRN TP MUSCLE PAIN; Start 01/06/17 at 18:30 Al Hydroxide/Mg Hydroxide (Mylanta Plus Xs) 15 ml PRN AFTMEALHC PRN PO DYSPEPSIA; Start 01/06/17 at 18:30 Magnesium Hydroxide (Milk Of Magnesia) 2,400 mg PRN QHS PRN PO CONSTIPATION Last administered on 01/09/17 20:58; Start 01/06/17 at 18:30 Nicotine (Nicoderm Cq 21mg) 1 patch DAILY TD Last administered on 01/13/17 08: 09; Start 01/07/17 at 09:00 Allopurinol (Zyloprim) 300 mg DAILY PO Last administered on 01/13/17 08:08; Start 01/07/17 at 09:00 Aspirin (Children'S Aspirin) 81 mg DAILY PO Last administered on 01/13/17 08: 06; Start 01/07/17 at 09:00 Glimepiride (Amaryl) 4 mg DAILYAC PO Last administered on 01/13/17 08:08; Start 01/07/17 at 07:30 Metolazone (Zaroxolyn) 2.5 mg DAILY PO Last administered on 01/13/17 08:10; Start 01/07/17 at 09:00 Nitroglycerin (Nitrostat) 0.4 mg PRN Q5MIN PRN SL CHEST PAIN; Start 01/07/17 at 03:00 Potassium Chloride (Klor-Con) 20 meq DAILY PO Last administered on 01/13/17 08 :07; Start 01/07/17 at 09:00 Senna/Docusate Sodium (Senna Plus) 1 tab PRN BID PRN PO constipation; Start at 03:00 Spironolactone (Aldactone) 12.5 mg DAILY PO ; Start 01/07/17 at 09:00; Stop at 17:33; Status DC Torsemide (Demadex) 20 mg BIDACBL PO Last administered on 01/13/17 11:36; Start 01/07/17 at 07:30 Gabapentin (Neurontin) 600 mg TID PO Last administered on 01/13/17 19:31; Start 01/07/17 at 09:00 Indomethacin (Indocin) 50 mg PRN TID PRN PO INFLAMATION Last administered on 14:37; Start 01/07/17 at 03:00 Ondansetron HCl (Zofran Odt) 8 mg PRN Q8HRS PRN PO NAUSEA; Start 01/07/17 at 03 :00 Linagliptin (Tradjenta) 5 mg DAILY PO Last administered on 01/13/17 08:08; Start 01/07/17 at 09:00 Spironolactone (Aldactone) 50 mg DAILY PO ; Start 01/07/17 at 09:00; Stop at 17:33; Status DC Trazodone HCl (Desyrel) 200 mg HS PO Last administered on 01/13/17 19:35; Start 01/07/17 at 21:00 Venlafaxine HCl (Effexor) 75 mg TID PO Last administered on 01/13/17 19:31; Start 01/07/17 at 09:00 Spironolactone (Aldactone) 25 mg DAILY PO Last administered on 01/13/17 08:08 ; Start 01/08/17 at 09:00 Quetiapine Fumarate (SEROquel) 25 mg QHS PO Last administered on 01/07/17 19: 49; Start 01/07/17 at 21:00; Stop 01/08/17 at 18:23; Status DC Lorazepam (Ativan) 0.25 mg PRN Q2HR PRN PO ANXIETY / AGITATION Last administered on 01/13/17 16:51; Start 01/08/17 at 18:30 Quetiapine Fumarate (SEROquel) 50 mg QHS PO Last administered on 01/12/17 19: 41; Start 01/08/17 at 21:00 Quetiapine Fumarate (SEROquel) 12.5 mg BID92 PO Last administered on 01/13/17 14:37; Start 01/11/17 at 09:00 Active Scripts Active Reported Trazodone Hcl 100 Mg Tablet 200 Mg PO HS Nitrostat (Nitroglycerin) 0.4 Mg Tab.subl 0.4 Mg SL PRN Q5MIN PRN Spironolactone 50 Mg Tablet 50 Mg PO DAILY Indomethacin 50 Mg Capsule 50 Mg PO TID PRN Januvia (Sitagliptin Phosphate) 100 Mg Tablet 100 Mg PO DAILY [place]-S Tablet (Sennosides/Docusate Sodium) 1 Each Tablet 1 Each PO PRN BID PRN Zofran Odt (Ondansetron) 8 Mg Tab.rapdis 8 Mg PO PRN Q8HR PRN Aspirin 81 Mg Tab.chew 81 Mg PO DAILY Torsemide 20 Mg Tablet 20 Mg PO BIDACBL Klor-Con M20 (Potassium Chloride) 20 Meq Tab.er.prt 20 Meq PO DAILY Glimepiride 4 Mg Tablet 4 Mg PO DAILYAC Metolazone 2.5 Mg Tablet 2.5 Mg PO DAILY Gabapentin 600 Mg Tablet 600 Mg PO TID Spironolactone 25 Mg Tablet 12.5 Mg PO DAILY Allopurinol 300 Mg Tablet 300 Mg PO DAILY Venlafaxine Hcl Er (Venlafaxine Hcl) 75 Mg Cap.er.24h 3 Cap PO DAILY Diagnosis: Problems: (1) Mental status change (2) Bipolar 1 disorder, mixed (3) Bipolar 1 disorder, mixed, moderate (4) Anxiety disorder (5) Impulse control disorder TRUDI LACEY MD Jan 13, 2017 19:50
--- NOTE | 2017-01-14 00:08 | PN ---
DATE: 01/12/2017 SUBJECTIVE: This is a late entry at 01/12/2017, covers elements in my initial note. I met with the patient evening of 01/12/2017 and had some length in her room. Her family calls her often and she is less fixated on discharge plans, but still somewhat obsessive and ruminative about this as I met with her. REVIEW OF SYSTEMS: Shortness of breath and impaired ambulation. No CV, , eye, or ENT system symptoms on review. MENTAL STATUS EXAM: Oriented to herself and situation. Speech is coherent, a little pressured typical for her, abstraction fair, computation impaired, language function intact, attention span short, mood and affect appears improved, and less labile. LABORATORY DATA: Reviewed. IMPRESSION: Unchanged from initial note. PLAN: Continue current psychotropics. Seroquel was increased. Maintain Effexor. Rest unchanged for now. Reviewed drug interactions and risk/benefit ratio of her current psychotropics. Indicated no further change. TRUDI LACEY MD DR: CRYS/marietta JOB#: [id number] / [id number]
[2017-01-14 05:54] VITALS: BP 101/55
[2017-01-14 06:49] LABS: BASO # 0.1 x10^3/uL (0.0-0.2); BASO % 1 % (0-3); EOS # 0.3 x10^3/uL (0.0-0.7); EOS % 4 % (0-3); HEMATOCRIT 42.5 % (36.0-47.0); HEMOGLOBIN 13.8 g/dL (12.0-15.5); LYMPH # 3.1 x10^3/uL (1.0-4.8); LYMPH % 43 % (24-48); MEAN CORPUSCULAR HEMOGLOBIN 31 pg (25-35); MEAN CORPUSCULAR HGB CONC 33 g/dL (31-37); MEAN CORPUSCULAR VOLUME 95 fL (79-100); MONO # 0.6 x10^3/uL (0.0-1.1); MONO % 8 % (0-9); NEUT # 3.1 x10^3uL (1.8-7.7); NEUT % 43 % (31-73); PLATELET COUNT 203 x10^3/uL (140-400); RED CELL DISTRIBUTION WIDTH 16.7 % (11.5-14.5); WHITE BLOOD COUNT 7.3 x10^3/uL (4.0-11.0)
[2017-01-14 06:50] LABS: ALBUMIN 3.1 g/dL (3.4-5.0); ALBUMIN/GLOBULIN RATIO 0.9 (1.0-1.7); CALCIUM 8.8 mg/dL (8.5-10.1); CREATININE 2.2 mg/dL (0.6-1.0); GFR 26.9; POTASSIUM 3.7 mmol/L (3.5-5.1); TOTAL BILIRUBIN 0.2 mg/dL (0.2-1.0); TOTAL PROTEIN 6.4 g/dL (6.4-8.2)
[2017-01-14] MEDS: ASPIRIN 81 MG TAB.CHEW PO SCH (07:53)
[2017-01-14] MEDS: POTASSIUM CHLORIDE 20 MEQ TABLET.ER. PO SCH (07:53)
[2017-01-14] MEDS: VENLAFAXINE 75 MG TABLET. PO SCH ×3 (07:53→19:14)
[2017-01-14] MEDS: GLIMEPIRIDE 4 MG TABLET PO SCH (07:53)
[2017-01-14] MEDS: ALLOPURINOL 300 MG TABLET. PO SCH (07:53)
[2017-01-14] MEDS: GABAPENTIN 300 MG CAPSULE. PO SCH ×3 (07:53→19:13)
[2017-01-14] MEDS: LINAGLIPTIN 5 MG TABLET PO SCH (07:54)
[2017-01-14] MEDS: NICOTINE 21MG PATCH. TD SCH (07:54)
[2017-01-14] MEDS: LORazepam 0.5 MG TABLET PO PRN (07:54)
[2017-01-14] MEDS: SPIRONOLACTONE 25 MG TABLET PO SCH (07:54)
[2017-01-14] MEDS: QUEtiapine 25 MG TABLET. PO SCH ×3 (07:54→19:14)
[2017-01-14] MEDS: metOLazone 2.5 MG TABLET PO SCH (07:55)
[2017-01-14] MEDS: TORSEMIDE 20 MG TABLET. PO SCH ×2 (07:55→12:19)
[2017-01-14] MEDS ORDERED: DEXTROSE 50% 25 GM / 50ML DISP.SYRIN. IV PRN (11:15)
[2017-01-14] MEDS: INSULIN ASPART 300 UNITS/3 ML INSULN.PEN SQ SCH ×3 (11:30→19:15)
[2017-01-14] MEDS ORDERED: INSULIN ASPART 300 UNITS/3 ML INSULN.PEN SQ ONE (11:45)
[2017-01-14 16:07] VITALS: BP 109/65
--- NOTE | 2017-01-14 18:47 | PDOC ---
Exam Albert Demential Exam: Albert Note: Please also refer to the separate dictated note~for this date of service dictated separately.~Patient seen individually. Discussed the patient with Nursing staff reviewed the chart.~Reviewed interim history and current functioning. Reviewed vital signs,~Labs/ Radiology~and current medications noted below. Continue current treatment with the changes noted in the dictated addendum note Assessment: Vital Signs: Vital Signs Date Time Temp Pulse Resp B/P (MAP) Pulse Ox O2 Delivery O2 Flow Rate FiO2 01/14/17 16:07 97.8 81 18 109/65 (80) 97 Room Air 01/14/17 05:54 2.0 I&O Intake and Output 01/14/17 07:00 Intake Total 1020 ml Balance 1020 ml Intake Oral 1020 ml Labs: Laboratory Tests Test 01/13/17 19:25 01/14/17 06:13 01/14/17 07:10 01/14/17 11:05 Glucose (Fingerstick) 255 mg/dL (70-99) H 142 mg/dL (70-99) H 326 mg/dL (70-99) H White Blood Count 7.3 x10^3/uL (4.0-11.0) Red Blood Count 4.50 x10^6/uL (3.50-5.40) Hemoglobin 13.8 g/dL (12.0-15.5) Hematocrit 42.5 % (36.0-47.0) Mean Corpuscular Volume 95 fL (79-100) Mean Corpuscular Hemoglobin 31 pg (25-35) Mean Corpuscular Hemoglobin Concent 33 g/dL (31-37) Red Cell Distribution Width 16.7 % (11.5-14.5) H Platelet Count 203 x10^3/uL (140-400) Neutrophils (%) (Auto) 43 % (31-73) Lymphocytes (%) (Auto) 43 % (24-48) Monocytes (%) (Auto) 8 % (0-9) Eosinophils (%) (Auto) 4 % (0-3) H Basophils (%) (Auto) 1 % (0-3) Neutrophils # (Auto) 3.1 x10^3uL (1.8-7.7) Lymphocytes # (Auto) 3.1 x10^3/uL (1.0-4.8) Monocytes # (Auto) 0.6 x10^3/uL (0.0-1.1) Eosinophils # (Auto) 0.3 x10^3/uL (0.0-0.7) Basophils # (Auto) 0.1 x10^3/uL (0.0-0.2) Sodium Level 141 mmol/L (136-145) Potassium Level 3.7 mmol/L (3.5-5.1) Chloride Level 102 mmol/L (98-107) Carbon Dioxide Level 29 mmol/L (21-32) Anion Gap 10 (6-14) Blood Urea Nitrogen 49 mg/dL (7-20) H Creatinine 2.2 mg/dL (0.6-1.0) H Estimated GFR (Cockcroft-Gault) 26.9 BUN/Creatinine Ratio 22 (6-20) H Glucose Level 162 mg/dL (70-99) H Calcium Level 8.8 mg/dL (8.5-10.1) Total Bilirubin 0.2 mg/dL (0.2-1.0) Aspartate Amino Transferase (AST) 14 U/L (15-37) L Alanine Aminotransferase (ALT) 18 U/L (14-59) Alkaline Phosphatase 64 U/L (46-116) Total Protein 6.4 g/dL (6.4-8.2) Albumin 3.1 g/dL (3.4-5.0) L Albumin/Globulin Ratio 0.9 (1.0-1.7) L Test 01/14/17 14:24 01/14/17 16:47 Glucose (Fingerstick) 374 mg/dL (70-99) H 272 mg/dL (70-99) H Current Medications: Meds: Current Medications Albuterol/ Ipratropium (Duoneb) 3 ml 1X ONCE NEB Last administered on 16:09; Start 01/06/17 at 16:10; Stop 01/06/17 at 16:11; Status DC Oxycodone/ Acetaminophen (Percocet 7.5/ 325) 1 tab 1X ONCE PO Last administered on 01/06/17 16:07; Start 01/06/17 at 16:10; Stop 01/06/17 at 16:11 ; Status DC Albuterol/ Ipratropium (Duoneb) 3 ml STK-MED ONCE .ROUTE ; Start 01/06/17 at 16: 07; Stop 01/06/17 at 16:08; Status DC Acetaminophen (Tylenol) 650 mg PRN Q6HRS PRN PO PAIN / TEMP Last administered on 01/08/17 12:03; Start 01/06/17 at 16:30 Multi-Ingredient Ointment (Analgesic [place]) 1 luis miguel PRN QID PRN TP MUSCLE PAIN; Start 01/06/17 at 18:30 Al Hydroxide/Mg Hydroxide (Mylanta Plus Xs) 15 ml PRN AFTMEALHC PRN PO DYSPEPSIA; Start 01/06/17 at 18:30 Magnesium Hydroxide (Milk Of Magnesia) 2,400 mg PRN QHS PRN PO CONSTIPATION Last administered on 01/09/17 20:58; Start 01/06/17 at 18:30 Nicotine (Nicoderm Cq 21mg) 1 patch DAILY TD Last administered on 01/14/17 07: 54; Start 01/07/17 at 09:00 Allopurinol (Zyloprim) 300 mg DAILY PO Last administered on 01/14/17 07:53; Start 01/07/17 at 09:00 Aspirin (Children'S Aspirin) 81 mg DAILY PO Last administered on 01/14/17 07: 53; Start 01/07/17 at 09:00 Glimepiride (Amaryl) 4 mg DAILYAC PO Last administered on 01/14/17 07:53; Start 01/07/17 at 07:30 Metolazone (Zaroxolyn) 2.5 mg DAILY PO Last administered on 01/14/17 07:55; Start 01/07/17 at 09:00 Nitroglycerin (Nitrostat) 0.4 mg PRN Q5MIN PRN SL CHEST PAIN; Start 01/07/17 at 03:00 Potassium Chloride (Klor-Con) 20 meq DAILY PO Last administered on 01/14/17 07 :53; Start 01/07/17 at 09:00 Senna/Docusate Sodium (Senna Plus) 1 tab PRN BID PRN PO constipation; Start at 03:00 Spironolactone (Aldactone) 12.5 mg DAILY PO ; Start 01/07/17 at 09:00; Stop at 17:33; Status DC Torsemide (Demadex) 20 mg BIDACBL PO Last administered on 01/14/17 12:19; Start 01/07/17 at 07:30 Gabapentin (Neurontin) 600 mg TID PO Last administered on 01/14/17 14:05; Start 01/07/17 at 09:00 Indomethacin (Indocin) 50 mg PRN TID PRN PO INFLAMATION Last administered on 14:37; Start 01/07/17 at 03:00 Ondansetron HCl (Zofran Odt) 8 mg PRN Q8HRS PRN PO NAUSEA; Start 01/07/17 at 03 :00 Linagliptin (Tradjenta) 5 mg DAILY PO Last administered on 01/14/17 07:54; Start 01/07/17 at 09:00 Spironolactone (Aldactone) 50 mg DAILY PO ; Start 01/07/17 at 09:00; Stop at 17:33; Status DC Trazodone HCl (Desyrel) 200 mg HS PO Last administered on 01/13/17 19:35; Start 01/07/17 at 21:00 Venlafaxine HCl (Effexor) 75 mg TID PO Last administered on 01/14/17 14:05; Start 01/07/17 at 09:00 Spironolactone (Aldactone) 25 mg DAILY PO Last administered on 01/14/17 07:54 ; Start 01/08/17 at 09:00 Quetiapine Fumarate (SEROquel) 25 mg QHS PO Last administered on 01/07/17 19: 49; Start 01/07/17 at 21:00; Stop 01/08/17 at 18:23; Status DC Lorazepam (Ativan) 0.25 mg PRN Q2HR PRN PO ANXIETY / AGITATION Last administered on 01/14/17 07:54; Start 01/08/17 at 18:30 Quetiapine Fumarate (SEROquel) 50 mg QHS PO Last administered on 01/13/17 20: 49; Start 01/08/17 at 21:00 Quetiapine Fumarate (SEROquel) 12.5 mg BID92 PO Last administered on 01/14/17 14:05; Start 01/11/17 at 09:00 Insulin Aspart (NovoLOG) 10 units 1X ONCE SQ Last administered on 01/14/17 12 :21; Start 01/14/17 at 11:45; Stop 01/14/17 at 11:46; Status DC Insulin Aspart (NovoLOG) 0-7 UNITS TIDACHC SQ Last administered on 01/14/17 17 :13; Start 01/14/17 at 11:30 Dextrose 12.5 gm PRN Q15MIN PRN IV SEE COMMENTS; Start 01/14/17 at 11:15 Active Scripts Active Reported Trazodone Hcl 100 Mg Tablet 200 Mg PO HS Nitrostat (Nitroglycerin) 0.4 Mg Tab.subl 0.4 Mg SL PRN Q5MIN PRN Spironolactone 50 Mg Tablet 50 Mg PO DAILY Indomethacin 50 Mg Capsule 50 Mg PO TID PRN Januvia (Sitagliptin Phosphate) 100 Mg Tablet 100 Mg PO DAILY Sen[place]-S Tablet (Sennosides/Docusate Sodium) 1 Each Tablet 1 Each PO PRN BID PRN Zofran Odt (Ondansetron) 8 Mg Tab.rapdis 8 Mg PO PRN Q8HR PRN Aspirin 81 Mg Tab.chew 81 Mg PO DAILY Torsemide 20 Mg Tablet 20 Mg PO BIDACBL Klor-Con M20 (Potassium Chloride) 20 Meq Tab.er.prt 20 Meq PO DAILY Glimepiride 4 Mg Tablet 4 Mg PO DAILYAC Metolazone 2.5 Mg Tablet 2.5 Mg PO DAILY Gabapentin 600 Mg Tablet 600 Mg PO TID Spironolactone 25 Mg Tablet 12.5 Mg PO DAILY Allopurinol 300 Mg Tablet 300 Mg PO DAILY Venlafaxine Hcl Er (Venlafaxine Hcl) 75 Mg Cap.er.24h 3 Cap PO DAILY Diagnosis: Problems: (1) Impulse control disorder (2) Mild cognitive disorder (3) Anxiety disorder (4) Bipolar 1 disorder, mixed, moderate TRUDI LACEY MD Jan 14, 2017 18:47
[2017-01-14] MEDS: traZODone 100 MG TABLET. PO SCH (19:14)
[2017-01-15] MEDS: INDOMETHACIN 25 MG CAPSULE PO PRN (01:38)
[2017-01-15] MEDS ORDERED: ACET325T9 PO (03:12)
[2017-01-15] MEDS ORDERED: INSU100I17 SQ (03:14)
[2017-01-15] MEDS ORDERED: LINA5TAB4 PO (03:15)
[2017-01-15] MEDS ORDERED: LORA0.5T PO (03:16)
[2017-01-15] MEDS ORDERED: MAG30ORA2 PO (03:17)
[2017-01-15] MEDS ORDERED: MAGN400O7 PO (03:18)
[2017-01-15] MEDS ORDERED: METH29OI TP (03:18)
[2017-01-15] MEDS ORDERED: NICO1PAT21 TD (03:19)
[2017-01-15] MEDS ORDERED: QUET50TA5 PO (03:20)
[2017-01-15] MEDS ORDERED: QUET25TA5 PO (03:20)
[2017-01-15] MEDS ORDERED: METO2.5T PO (03:24)
--- NOTE | 2017-01-15 05:02 | PN ---
DATE: 01/13/2017 This late entry 01/13/2017 covers elements not covered in my initial note. I met with the patient evening of 01/13/2017 at length. Overall, she has done well, reasonably oriented, still anxious, little labile at times per nursing report. REVIEW OF SYSTEMS: Complains of numbness, tingling in her feet. No CV, , pulmonary, eye, ENT system symptoms on review. MENTAL STATUS EXAM: Oriented x 4. Speech coherent, anxious, somewhat obsessive, ruminative, repetitive, about discharge plans addressed at length with her. Abstraction fair, computation impaired, language function intact, attention span short. Mood and affect remains labile, but improved. LABORATORY DATA: Reviewed. IMPRESSION: Unchanged from initial note. PLAN: Continue current psychotropics. Reviewed drug interactions. Risk benefit ratio at length. Adjust as clinically indicated. MAN Enriqueta LACEY MD DR: CRYS/marietta JOB#: [id number] / [id number]
[2017-01-15 06:24] VITALS: BP 112/76
[2017-01-15] MEDS: ALLOPURINOL 300 MG TABLET. PO SCH (08:31)
[2017-01-15] MEDS: NICOTINE 21MG PATCH. TD SCH (08:31)
[2017-01-15] MEDS: LINAGLIPTIN 5 MG TABLET PO SCH (08:32)
[2017-01-15] MEDS: QUEtiapine 25 MG TABLET. PO SCH (08:32)
[2017-01-15] MEDS: GABAPENTIN 300 MG CAPSULE. PO SCH (08:32)
[2017-01-15] MEDS: VENLAFAXINE 75 MG TABLET. PO SCH (08:33)
[2017-01-15] MEDS: SPIRONOLACTONE 25 MG TABLET PO SCH (08:33)
[2017-01-15] MEDS: ASPIRIN 81 MG TAB.CHEW PO SCH (08:33)
[2017-01-15] MEDS: POTASSIUM CHLORIDE 20 MEQ TABLET.ER. PO SCH (08:33)
[2017-01-15] MEDS: TORSEMIDE 20 MG TABLET. PO SCH (08:36)
[2017-01-15] MEDS: metOLazone 2.5 MG TABLET PO SCH (08:36)
[2017-01-15] MEDS: INSULIN ASPART 300 UNITS/3 ML INSULN.PEN SQ SCH (08:47)
[2017-01-15] MEDS: GLIMEPIRIDE 4 MG TABLET PO SCH (08:47)
--- NOTE | 2017-01-15 18:24 | PDOC ---
Exam Albert Demential Exam: Albert Note: Please also refer to the separate dictated note~for this date of service dictated separately.~Patient seen individually. Discussed the patient with Nursing staff reviewed the chart.~Reviewed interim history and current functioning. Reviewed vital signs,~Labs/ Radiology~and current medications noted below. Continue current treatment with the changes noted in the dictated addendum note Assessment: Vital Signs: Vital Signs Date Time Temp Pulse Resp B/P (MAP) Pulse Ox O2 Delivery O2 Flow Rate FiO2 01/15/17 06:24 97.2 80 20 112/76 (88) 95 01/14/17 16:07 Room Air 01/14/17 05:54 2.0 I&O Intake and Output 01/15/17 07:00 Intake Total 1200 ml Balance 1200 ml Intake Oral 1200 ml # Bowel Movements 1 Labs: Laboratory Tests Test 01/14/17 19:07 01/15/17 07:20 Glucose (Fingerstick) 208 mg/dL (70-99) H 164 mg/dL (70-99) H Current Medications: Meds: Current Medications Albuterol/ Ipratropium (Duoneb) 3 ml 1X ONCE NEB Last administered on 16:09; Start 01/06/17 at 16:10; Stop 01/06/17 at 16:11; Status DC Oxycodone/ Acetaminophen (Percocet 7.5/ 325) 1 tab 1X ONCE PO Last administered on 01/06/17 16:07; Start 01/06/17 at 16:10; Stop 01/06/17 at 16:11 ; Status DC Albuterol/ Ipratropium (Duoneb) 3 ml STK-MED ONCE .ROUTE ; Start 01/06/17 at 16: 07; Stop 01/06/17 at 16:08; Status DC Acetaminophen (Tylenol) 650 mg PRN Q6HRS PRN PO PAIN / TEMP Last administered on 01/08/17 12:03; Start 01/06/17 at 16:30; Stop 01/15/17 at 11:04; Status DC Multi-Ingredient Ointment (Analgesic [place]) 1 luis miguel PRN QID PRN TP MUSCLE PAIN; Start 01/06/17 at 18:30; Stop 01/15/17 at 11:04; Status DC Al Hydroxide/Mg Hydroxide (Mylanta Plus Xs) 15 ml PRN AFTMEALHC PRN PO DYSPEPSIA; Start 01/06/17 at 18:30; Stop 01/15/17 at 11:04; Status DC Magnesium Hydroxide (Milk Of Magnesia) 2,400 mg PRN QHS PRN PO CONSTIPATION Last administered on 01/09/17 20:58; Start 01/06/17 at 18:30; Stop 01/15/17 at 11:04; Status DC Nicotine (Nicoderm Cq 21mg) 1 patch DAILY TD Last administered on 01/15/17 08: 31; Start 01/07/17 at 09:00; Stop 01/15/17 at 11:04; Status DC Allopurinol (Zyloprim) 300 mg DAILY PO Last administered on 01/15/17 08:31; Start 01/07/17 at 09:00; Stop 01/15/17 at 11:04; Status DC Aspirin (Children'S Aspirin) 81 mg DAILY PO Last administered on 01/15/17 08: 33; Start 01/07/17 at 09:00; Stop 01/15/17 at 11:04; Status DC Glimepiride (Amaryl) 4 mg DAILYAC PO Last administered on 01/15/17 08:47; Start 01/07/17 at 07:30; Stop 01/15/17 at 11:04; Status DC Metolazone (Zaroxolyn) 2.5 mg DAILY PO Last administered on 01/15/17 08:36; Start 01/07/17 at 09:00; Stop 01/15/17 at 11:04; Status DC Nitroglycerin (Nitrostat) 0.4 mg PRN Q5MIN PRN SL CHEST PAIN; Start 01/07/17 at 03:00; Stop 01/15/17 at 11:04; Status DC Potassium Chloride (Klor-Con) 20 meq DAILY PO Last administered on 01/15/17 08 :33; Start 01/07/17 at 09:00; Stop 01/15/17 at 11:04; Status DC Senna/Docusate Sodium (Senna Plus) 1 tab PRN BID PRN PO constipation; Start at 03:00; Stop 01/15/17 at 11:04; Status DC Spironolactone (Aldactone) 12.5 mg DAILY PO ; Start 01/07/17 at 09:00; Stop at 17:33; Status DC Torsemide (Demadex) 20 mg BIDACBL PO Last administered on 01/15/17 08:36; Start 01/07/17 at 07:30; Stop 01/15/17 at 11:04; Status DC Gabapentin (Neurontin) 600 mg TID PO Last administered on 01/15/17 08:32; Start 01/07/17 at 09:00; Stop 01/15/17 at 11:04; Status DC Indomethacin (Indocin) 50 mg PRN TID PRN PO INFLAMATION Last administered on 01:38; Start 01/07/17 at 03:00; Stop 01/15/17 at 11:04; Status DC Ondansetron HCl (Zofran Odt) 8 mg PRN Q8HRS PRN PO NAUSEA; Start 01/07/17 at 03 :00; Stop 01/15/17 at 11:04; Status DC Linagliptin (Tradjenta) 5 mg DAILY PO Last administered on 01/15/17 08:32; Start 01/07/17 at 09:00; Stop 01/15/17 at 11:04; Status DC Spironolactone (Aldactone) 50 mg DAILY PO ; Start 01/07/17 at 09:00; Stop at 17:33; Status DC Trazodone HCl (Desyrel) 200 mg HS PO Last administered on 01/14/17 19:14; Start 01/07/17 at 21:00; Stop 01/15/17 at 11:04; Status DC Venlafaxine HCl (Effexor) 75 mg TID PO Last administered on 01/15/17 08:33; Start 01/07/17 at 09:00; Stop 01/15/17 at 11:04; Status DC Spironolactone (Aldactone) 25 mg DAILY PO Last administered on 01/15/17 08:33 ; Start 01/08/17 at 09:00; Stop 01/15/17 at 11:04; Status DC Quetiapine Fumarate (SEROquel) 25 mg QHS PO Last administered on 01/07/17 19: 49; Start 01/07/17 at 21:00; Stop 01/08/17 at 18:23; Status DC Lorazepam (Ativan) 0.25 mg PRN Q2HR PRN PO ANXIETY / AGITATION Last administered on 01/14/17 07:54; Start 01/08/17 at 18:30; Stop 01/15/17 at 11:04 ; Status DC Quetiapine Fumarate (SEROquel) 50 mg QHS PO Last administered on 01/14/17 19: 14; Start 01/08/17 at 21:00; Stop 01/15/17 at 11:04; Status DC Quetiapine Fumarate (SEROquel) 12.5 mg BID92 PO Last administered on 01/15/17 08:32; Start 01/11/17 at 09:00; Stop 01/15/17 at 11:04; Status DC Insulin Aspart (NovoLOG) 10 units 1X ONCE SQ Last administered on 01/14/17 12 :21; Start 01/14/17 at 11:45; Stop 01/14/17 at 11:46; Status DC Insulin Aspart (NovoLOG) 0-7 UNITS TIDACHC SQ Last administered on 01/15/17 08 :47; Start 01/14/17 at 11:30; Stop 01/15/17 at 11:04; Status DC Dextrose 12.5 gm PRN Q15MIN PRN IV SEE COMMENTS; Start 01/14/17 at 11:15; Stop 01/15/17 at 11:04; Status DC Active Scripts Active Reported Seroquel (Quetiapine Fumarate) 25 Mg Tablet 12.5 Mg PO BID92 Seroquel (Quetiapine Fumarate) 50 Mg Tablet 50 Mg PO QHS NICODERM CQ 21mg (Nicotine) 1 Each Patch.td24 1 Patch TD DAILY Analgesic [place] (Methyl Salicylate/Menthol) 28 Gm Oint...g. 1 Gm TP PRN QID PRN Milk Of Magnesia (Magnesium Hydroxide) 400 Mg/5 Ml Oral.susp 2,400 Mg PO PRN QHS PRN Mag-Al Plus Xs Suspension (Mag Hydrox/Al Hydrox/Simeth) 30 Ml Oral.susp 15 Ml PO PRN AFTMEALHC PRN Lorazepam 0.5 Mg Tablet 0.25 Mg PO PRN Q4HRS PRN Tradjenta (Linagliptin) 5 Mg Tablet 5 Mg PO DAILY Novolog Flexpen (Insulin Aspart) 100 Unit/1 Ml Insuln.pen 0-7 Unit SQ TIDACHC Tylenol (Acetaminophen) 325 Mg Tablet 650 Mg PO PRN Q6HRS PRN Trazodone Hcl 100 Mg Tablet 200 Mg PO HS Nitrostat (Nitroglycerin) 0.4 Mg Tab.subl 0.4 Mg SL PRN Q5MIN PRN Indomethacin 50 Mg Capsule 50 Mg PO TID PRN Senexon-S Tablet (Sennosides/Docusate Sodium) 1 Each Tablet 1 Each PO PRN BID PRN Zofran Odt (Ondansetron) 8 Mg Tab.rapdis 8 Mg PO PRN Q8HR PRN Aspirin 81 Mg Tab.chew 81 Mg PO DAILY Torsemide 20 Mg Tablet 10 Mg PO BID Klor-Con M20 (Potassium Chloride) 20 Meq Tab.er.prt 20 Meq PO DAILY Glimepiride 4 Mg Tablet 4 Mg PO DAILYAC Metolazone 2.5 Mg Tablet 2.5 Mg PO DAILY Gabapentin 600 Mg Tablet 600 Mg PO TID Spironolactone 25 Mg Tablet 25 Mg PO DAILY Allopurinol 300 Mg Tablet 300 Mg PO DAILY Venlafaxine Hcl Er (Venlafaxine Hcl) 75 Mg Cap.er.24h 75 Mg PO TID Diagnosis: Problems: (1) Impulse control disorder (2) Mild cognitive disorder (3) Anxiety disorder (4) Bipolar 1 disorder, mixed, moderate (5) Bipolar 1 disorder, mixed TRUDI LACEY MD Jan 15, 2017 18:24
--- NOTE | 2017-01-16 03:08 | PN ---
DATE: 01/14/2017 PSYCHIATRIC PROGRESS NOTE This is a late entry 01/14/2017, covers elements not covered in my initial note of 01/14/2017. SUBJECTIVE: Overall, per nursing report, the patient is doing better. I met with her the evening of 01/14/2017. She had a telephone call with her daughter and this seemed to go well. They were not arguing like they have done in the past. She refused her oxygen most of the day. O2 sats are stable. REVIEW OF SYSTEMS: Shortness of breath. No CV, , eye, ENT system symptoms on review. MENTAL STATUS EXAM: Reasonably oriented. Speech coherent, abstraction fair, computation impaired, language function intact. Attention span improved. Mood and affect is improved. No active suicidal or homicidal ideation. IMPRESSION: Unchanged from initial note. PLAN: Continue current psychotropics, review drug interactions risk/benefit ratio favors no change for now. Possible transition to home 01/15/2017. TRUDI LACEY MD DR: CRYS/marietta JOB#: [id number] / [id number]
--- NOTE | 2017-01-16 20:40 | DS ---
DATE OF DISCHARGE: 01/15/2017 DISCHARGE SUMMARY/PSYCHIATRIC PROGRESS NOTE REASON FOR ADMISSION: Please refer to the admission history for details. Briefly, the patient is a 66-year-old -[place] female referred by Dr. Amanda Yu, Dr. Amanda Yu, her outpatient psychologist and after the patient's daughter called me as an emergency through my answering service on account of the patient's increased confusion, manic episodes, psychotic symptoms, being more emotional, forgetful, agitated. Her behaviors were deemed a potential danger to herself where she was living at home with her daughters caring for her. She failed outpatient psychiatric interventions with myself and psychotherapy with Dr. Yu, who called the daughter back from her [place] trip inevitably to inform the daughter to contact us consider inpatient psychiatric stabilization. SIGNIFICANT FINDINGS AND CLINICAL COURSE: Following admission, the patient was seen daily individually by myself from a psychiatric standpoint, medical followup per Dr. German/Dr Malcolm. The patient's admission UA was negative. She was quite psychotic, agitated, manic, restless, anxious and very emotional at admission. Adjustments were made in her psychotropics, she seemed to respond to a combination of Effexor 75 mg a day, trazodone 200 at bedtime, Seroquel 12.5 b.i.d. 50 mg at bedtime, Ativan p.r.n. CONDITION AT DISCHARGE: Improved prior to discharge. REVIEW OF SYSTEMS: Shortness of breath on O2 supplements, impaired ambulation with walker. No CV, GI, , eye, ENT system symptoms on review. MENTAL STATUS EXAM: The patient is reasonably oriented. Speech coherent, less pressured. Abstraction fair, computation impaired, language function intact. Mood and affect was improved, less labile. No suicidal or homicidal ideation at discharge. FINAL DIAGNOSES: Bipolar 1 disorder, mixed with psychotic features, in partial remission; anxiety disorder, unspecified; impulse control disorder, unspecified. Rest unchanged from admission. DISCHARGE MEDICATIONS: Please refer to the [facility]. Outpatient psychiatric followup with myself and psychotherapy with Dr. Yu. Medical followup with her primary care physician. MAN Enriqueta LACEY MD DR: CRYS/marietta JOB#: [id number] / [id number]
== END 2017-01-15 10:15 | disposition hospice, home (50) | DRG 885 ==
LOC: ER 14:28 → GEROPSY 17:27
PROVIDERS: ADMIT Psychiatry & Neurology Psychiatry; ATTEND Psychiatry & Neurology Psychiatry
DX: F31.62 Bipolar disorder, current episode mixed, moderate (principal); I50.9 Heart failure, unspecified; I48.91 Unspecified atrial fibrillation; E11.9 Type 2 diabetes mellitus without complications; F41.9 Anxiety disorder, unspecified; F63.9 Impulse disorder, unspecified; F17.210 Nicotine dependence, cigarettes, uncomplicated; J44.9 Chronic obstructive pulmonary disease, unspecified; M10.9 Gout, unspecified; Z66 Do not resuscitate; Z82.49 Family history of ischemic heart disease and other diseases of the circulatory system; Z85.3 Personal history of malignant neoplasm of breast; Z90.13 Acquired absence of bilateral breasts and nipples; Z95.0 Presence of cardiac pacemaker
CPT/HCPCS: 36415; 70450; 71010; 80048; 80053; 80061; 81001; 82306; 82607; 82947; 83036; 83540; 83550; 83735; 83880; 84436; 84480; 84484; 84550; 85025; 85651; 86140; 86592; 86593; 93005; 94640; 99407; J1815; J7620; 99285-25